=== PATIENT | female | born 1965 | race Caucasian/White ===

== ENCOUNTER 2020-01-01 10:49 | Emergency (ER) | payer BC, SELFPAY ==
[2020-01-01 10:56] VITALS: BP 119/66; PULSE 84; RESP 14; TEMP 36.6; O2SAT 99
--- NOTE | 2020-01-01 11:04 | ED.EAR ---
HPI - Ear Problem General Chief complaint: Ear Stated complaint: right ear pressure/shoulder pain Time Seen by Provider: 01/01/20 11:04 Source: patient Mode of arrival: ambulatory Limitations: no limitations History of Present Illness HPI Narrative: Nicole Harvey is a 54-year-old woman with a PMH of seizure disorder, high cholesterol, anxiety, GERD, who comes to the [facility] with tinnitus and discomfort in her right ear started yesterday Related Data Home Medications Medication Instructions Recorded Confirmed ascorbic acid (vitamin C) [Vitamin 500 mg PO DAILY 01/01/20 01/01/20 C] aspirin 81 mg PO DAILY 01/01/20 01/01/20 cetirizine [Zyrtec] 10 mg PO DAILY 01/01/20 01/01/20 diazepam 2 mg PO DIRECTED 01/01/20 01/01/20 lamotrigine 200 mg PO DAILY 01/01/20 01/01/20 omega 7-yit-poo-fish oil [Fish Oil] 1 cap PO DAILY 01/01/20 01/01/20 omeprazole 40 mg PO DAILY 01/01/20 01/01/20 rosuvastatin 10 mg PO DAILY 01/01/20 01/01/20 zinc 50 mg PO DAILY 01/01/20 01/01/20 Allergies Allergy/AdvReac Type Severity Reaction Status Date / Time ciprofloxacin Allergy Mild Verified 03/08/10 10:02 sulfamethoxazole Allergy Mild Verified 03/08/10 10:02 trimethoprim Allergy Mild Verified 03/08/10 10:02 CIPROFLOXACIN HCL Allergy Mild Uncoded 03/08/10 10:02 MIDAZOLAM HCL Allergy Mild Uncoded 03/08/10 10:02 Review of Systems Review of Systems: Narrative: CONSTITUTIONAL: Denies fever, chills, sweats. EYES: Denies visual changes, redness, discharge. ENT: Denies rhinorrhea, congestion, sore throat, right otalgia. And tinnitus CARDIOVASCULAR: Denies chest pain, palpitations, edema. RESPIRATORY: Denies dyspnea, wheezing, cough GASTROINTESTINAL: Denies abdominal pain, nausea, vomiting, diarrhea. GENITOURINARY: Denies dysuria, hematuria, abnormal discharge SKIN: Denies rash or itching. NEUROLOGIC: Denies numbness, or focal weakness. PSYCHIATRIC: Denies anxiety or depression. [facility] Family History Family History Other Diabetes mellitus Heart disease Hypertension Social History Social History (Updated 01/01/20 @ 11:12 by Natacha Powers CNP) Smoking status: Never smoker Alcohol intake: never Comments At time of signature, I agree with nursing past medical, surgical, social and family history. There is no relevant family history pertinent to the presenting complaint. Exam Narrative: Exam Narrative: GENERAL: This is a well-nourished, well-developed patient, in mild distress. HEAD: normocephalic, atraumatic. EYES:Sclera clear/white. Vision is grossly intact. EARS: External ears normal, auditory canals clear and without drainage, L TM normal without perforation. Fluid behind R TM Hearing grossly intact. NOSE: External nose normal without nasal discharge, nares without redness, no rhinorrhea. THROAT: Mucous membranes moist, NECK: Neck supple, CARDIOVASCULAR: Regular rate and rhythm without murmurs, gallops, or rubs. RESPIRATORY: Clear to auscultation. Breath sounds equal bilaterally. No wheezes, rales, or rhonchi. GASTROINTESTINAL: Abdomen soft, SKIN: warm, intact with no suspicious lesions or rash, good texture and turgor. NEURO: awake, alert, and oriented to person, place and time. There were no obvious focal neurologic abnormalities. Steady gait EXTREMITIES: Normal range of motion. BACK: Nontender without deformity Course Course Emergency Course: started on eardrops -discussed application of eardrops and patient should call PCP on Friday if not improved Vital Signs Vital signs: Vital Signs Temperature 98 F 01/01/20 10:56 Pulse Rate 84 01/01/20 10:56 Respiratory Rate 14 01/01/20 10:56 Blood Pressure 119/66 01/01/20 10:56 Pulse Oximetry 99 01/01/20 10:56 Temperature 98 F 01/01/20 10:56 Pulse Rate 84 01/01/20 10:56 Respiratory Rate 14 01/01/20 10:56 Blood Pressure 119/66 01/01/20 10:56 Pulse Oximetry 99 01/01/20
== END 2020-01-01 11:19 | disposition home or self-care (01) ==
PROVIDERS: Emergency Provider Nurse Practitioner; PCP Emergency Medicine
DX: H92.01 Otalgia, right ear (principal); G40.909 Epilepsy, unspecified, not intractable, without status epilepticus; K21.9 Gastro-esophageal reflux disease without esophagitis; E78.00 Pure hypercholesterolemia, unspecified
CPT/HCPCS: 99203; G0463

== ENCOUNTER 2020-02-01 15:23 | Outpatient (CLI) | payer BC, SELFPAY ==
--- NOTE | ~2020-02-01 | MM_ITS ---
EXAMINATION: MM screening mitchell BI w shiv HISTORY: Screening mammogram TECHNIQUE: Craniocaudal and mediolateral oblique 3-D tomosynthesis images were obtained and synthetic 2-D images were generated. Rotated lateral CC views. CAD analysis was submitted and interpreted. COMPARISON: No prior mammogram is available for comparison at this institution. BREAST PARENCHYMAL COMPOSITION: The breasts are heterogeneously dense, which may obscure small masses . FINDINGS: Left breast masses are noted. Probable calcified fibroadenoma in the posterior aspect of th e lower outer quadrant of left breast. Approximately 9 mm mass is noted posteriorly in the inner left breast. Additional smaller left breast masses are suggested. Otherwise no suspicious mass or architectural distortion, malignant calcification, skin thickening or retraction of either breast is noted. IMPRESSION: 1. Left breast masses 2. Diagnostic left mammogram and left breast ultrasound examination are recommended. BI-RADS Category 0: Incomplete: Needs additional imaging evaluation. Reviewed, dictated and finalized at location A. IMPRESSION: 1. Left breast masses 2. Diagnostic left mammogram and left breast ultrasound examination are recomme nded. BI-RADS Category 0: Incomplete: Needs additional imaging evaluation.
--- NOTE | ~2020-02-01 | US_ITS ---
US thyroid INDICATION: Thyroid nodule TECHNIQUE: Real-time sonographic images of the thyroid gland were obtained. COMPARISON: No prior studies for comparison. FINDINGS: The right thyroid lobe measures 4.1 x 1.3 x 1.3 cm. The left thyroid lobe measures 5.7 x 1 .4 x 1.3 cm. There is a 5 mm hypoechoic mixed solid and cystic, wider than tall, ill-defined margins with no calcifications, TR 3. No follow-up required. In the left lobe there is a heterogeneous mass w hich is mixed cystic and solid, relatively isoechoic, wider than tall, ill-defined margins and a sing le calcification, TR 3. This mass measures 2.2 x 1.2 x 1.5 cm. IMPRESSION: 1. 2.2 cm left thyroid mass, TR 3. Ultrasound-guided fine-needle aspiration biopsy recommended. Reviewed, dictated and finalized at location A. IMPRESSION: 1. 2.2 cm left thyroid mass, TR 3. Ultrasound-guided fine-needle aspiration bi opsy recommended.
== END 2020-02-01 15:24 | disposition home or self-care (01) ==
PROVIDERS: PCP Emergency Medicine; Visit Provider Emergency Medicine
DX: Z12.31 Encounter for screening mammogram for malignant neoplasm of breast (principal); E04.1 Nontoxic single thyroid nodule; R91.8 Other nonspecific abnormal finding of lung field
CPT/HCPCS: 76536; 77063; 77067

== ENCOUNTER 2020-02-03 15:24 | Emergency (ER) | payer BC, SELFPAY ==
[2020-02-03 15:30] VITALS: BP 104/68; PULSE 89; RESP 18; TEMP 37.1; O2SAT 100
--- NOTE | 2020-02-03 15:38 | ED.GENADULT ---
HPI - General Adult General Chief complaint: Upper Respiratory Infection Stated complaint: right ear pain/pressure/face numb Time Seen by Provider: 02/03/20 15:41 Source: patient and RN notes reviewed Mode of arrival: ambulatory Limitations: no limitations History of Present Illness HPI narrative: This is a 54 years old female presents to the office for an evaluation of right ear pain for one month. Symptoms include pressure and ringing. She was treated for ear infection with no relief. She said that she heard heart beats in her ear and woke up this morning with numbness on her face. She describes her symptoms as Novocain wears off type sensation. Denies slur speech, difficulty speaking, confusion or focal weakness. [facility] who prompt her to seek Urgentcare visit. Denies previous history of hearing problem/injury/trauma. Related Data Home Medications Medication Instructions Recorded Confirmed ascorbic acid (vitamin C) [Vitamin 500 mg PO DAILY 01/01/20 01/01/20 C] aspirin 81 mg PO DAILY 01/01/20 01/01/20 cetirizine [Zyrtec] 10 mg PO DAILY 01/01/20 01/01/20 diazepam 2 mg PO DIRECTED 01/01/20 01/01/20 lamotrigine 200 mg PO DAILY 01/01/20 01/01/20 omega 9-uif-srq-fish oil [Fish Oil] 1 cap PO DAILY 01/01/20 01/01/20 omeprazole 40 mg PO DAILY 01/01/20 01/01/20 rosuvastatin 10 mg PO DAILY 01/01/20 01/01/20 zinc 50 mg PO DAILY 01/01/20 01/01/20 rtqbowzwfgmo-ige-lhit-FA-vit K tablet PO 02/03/20 [Adults Multivitamin] rosuvastatin [Crestor] 20 mg PO DAILY 02/03/20 02/03/20 Allergies Allergy/AdvReac Type Severity Reaction Status Date / Time midazolam Allergy Unknown Verified 02/03/20 15:48 sulfamethoxazole Allergy Unknown Verified 02/03/20 15:49 [From Bactrim] trimethoprim [From Bactrim] Allergy Unknown Verified 02/03/20 15:49 ciprofloxacin AdvReac Unknown Verified 02/03/20 15:46 Review of Systems Review of Systems: Narrative: CONSTITUTIONAL: Denies fever, chills EYES: Denies visual changes, redness ENT: Denies rhinorrhea, congestion, sore throat. Reports right ear pressure, ringing and heart beat type noise. CARDIOVASCULAR: Denies chest pain, palpitation RESPIRATORY: Denies dyspnea, wheezing, cough GASTROINTESTINAL: Denies abdominal pain, nausea, vomiting SKIN: Denies rash/insect bites MUSCULOSKELETAL: Denies acute joints pain NEUROLOGIC: Denies lightheaded/weakness. All other systems reviewed are negative, except as documented in HPI. [facility] Past Medical History Medical History (Updated 02/03/20 @ 16:00 by DASIA Alvarenga) Anxiety GERD (gastroesophageal reflux disease) High cholesterol Seizure disorder Family History Family History Other Diabetes mellitus Heart disease Hypertension Social History Social History Smoking status: Never smoker Alcohol intake: never Comments At time of signature, I agree with nursing past medical, surgical, social and family history. There is no relevant family history pertinent to the presenting complaint. Exam Narrative: Exam Narrative: GENERAL: This is a well-nourished, well-developed patient, in no apparent distress. EYES: PERRL. EMOI. Sclera clear/white. Vision is grossly intact. EARS: External ears normal, auditory canals clear and without drainage, TMs normal without perforation. Hearing grossly intact.NO TMJ tenderness. NOSE: External nose normal with no obvious nasal discharge, nares without redness, no rhinorrhea. THROAT: Mucous membranes moist, posterior pharynx clear. NECK: Neck supple, non-tender without lymphadenopathy, masses or thyromegaly. CARDIOVASCULAR: Regular rate and rhythm without murmurs, gallops, or rubs. RESPIRATORY: Clear to auscultation. Breath sounds equal bilaterally. No wheezes, rales, or rhonchi. GASTROINTESTINAL: Abdomen soft, non-tender, nondistended. [place]
== END 2020-02-03 16:00 | disposition home or self-care (01) ==
PROVIDERS: Emergency Provider Nurse Practitioner; PCP Emergency Medicine
DX: H93.8X1 Other specified disorders of right ear (principal); F41.9 Anxiety disorder, unspecified; K21.9 Gastro-esophageal reflux disease without esophagitis; E78.00 Pure hypercholesterolemia, unspecified; G40.909 Epilepsy, unspecified, not intractable, without status epilepticus
CPT/HCPCS: 99211; G0463

== ENCOUNTER 2021-01-01 01:18 | Day surgery (SDC) | payer OTHER, SELFPAY ==
[2020-12-13 09:51] VITALS: BMI 27.5
[2021-01-01 08:25] VITALS: BP 128/89; PULSE 97; RESP 18; TEMP 36.2; O2SAT 100; BMI 26.6
--- NOTE | 2021-01-01 08:29 | P.PNAN_ITS ---
Anes - Initial Pre Proc Eval Procedure: Operation Date: 01/01/21 09:00 Proposed Procedures p Esophagogastroduodenoscopy & Screening Colonoscopy - Festus Simmons MD Date/Time: 01/01/21 08:29 Surgeon: Festus Melton MD Pre Op Diagnosis: neoplasm, GERD Patient Data Age: 55 Gender: F Height: 1.6 m Weight: 68.3 kg Last Vital Signs Temp 97.1 F L 01/01/21 08:25 Pulse 97 01/01/21 08:25 Resp 18 01/01/21 08:25 BP 128/89 01/01/21 08:25 Pulse Ox 100 01/01/21 08:25 Allergies Allergy/AdvReac Type Severity Reaction Status Date / Time sulfamethoxazole Allergy Unknown Verified 01/01/21 08:24 [From Bactrim] trimethoprim [From Bactrim] Allergy Unknown Verified 01/01/21 08:24 ciprofloxacin AdvReac Unknown Verified 01/01/21 08:24 midazolam AdvReac Unknown Verified 01/01/21 08:24 topiramate [From Topamax] AdvReac Hallucinati Verified 01/01/21 08:24 ng Home Medications Medication Instructions Recorded Confirmed Type ascorbic acid (vitamin C) [Vitamin 500 mg PO DAILY 01/01/20 12/13/20 History C] aspirin 81 mg PO DAILY 01/01/20 12/13/20 History cetirizine [Zyrtec] 10 mg PO DAILY 01/01/20 12/13/20 History lamotrigine 200 mg PO BID 01/01/20 12/13/20 History omega 6-pwd-pjc-fish oil [Fish Oil] 1 cap PO DAILY 01/01/20 12/13/20 History rosuvastatin 10 mg PO DAILY 01/01/20 12/13/20 History kdgqucupamzt-flt-xrov-FA-vit K 2 tablet PO DAILY 02/03/20 12/13/20 History [Adults Multivitamin] Turmeric/Curcumin 1 cap PO DAILY 12/13/20 12/13/20 History famotidine 40 mg PO DAILY 12/13/20 12/13/20 History Patient hx anesthesia problems: none Family hx anesthesia problems: none PMFSH Past Medical History Medical History (Updated 02/04/20 @ 00:00 by Background Daemon) Anxiety GERD (gastroesophageal reflux disease) High cholesterol Seizure disorder Family History Family History Other Diabetes mellitus Heart disease Hypertension Social History Social History Smoking status: Never smoker Alcohol intake: never Living arrangements: with family Spiritual care concerns: No Anes - Eval Final PreProcedure Day of Procedure 01/01/21 08:29 Patient weight: overweight Heart: regular rate and rhythm Lungs: clear to auscultation Airway: Mallampati scale class II Neurological: alert and oriented Last oral intake: >/= 8 hours ASA classification: III Emergent: no Anesthetic plan: proceed Anesthesia type and monitoring: general GIVS and standard monitoring Informed Consent: The patient's anesthetic plan and its attendant risks and benefits were discussed with the patient/family/POA. Questions were solicited and answers provided to the satisfaction of the patient/family/POA.
[2021-01-01] MEDS: LACTATED RINGERS 1,000 ML 150 ML IV CONT (08:42)
--- NOTE | 2021-01-01 08:56 | PM.HPGS ---
History of Present Illness History of Present Illness Consent: Risks, benefits, and alternatives have been discussed and questions answered. Patient agrees to proceed with procedure. Chief complaint: neoplasm, GERD Narrative: Felisha Harvey is a 55 year old female with gerd on famotidine, also had colonoscopy over 10 years ago. Review of Systems Constitutional: Constitutional: Denies headache(s) and Denies weakness Eyes: Eyes: Denies blurry vision ENT: Reports Normal hearing present, Denies headache(s) and Denies neck pain Cardiovascular: Cardiovascular: Denies chest pain and Denies dyspnea Respiratory: Respiratory: Denies dyspnea Gastrointestinal: Gastrointestinal: Reports no additional gastrointestinal complaints Genitourinary: Genitourinary: Denies dysuria Musculoskeletal: Musculoskeletal: Denies neck pain Integumentary/Breasts: Skin/Breast: Denies dry skin Neurologic: Reports Normal hearing present, Denies headache(s) and Denies weakness Psychiatric: Psychiatric: Denies anxiety Endocrine: Endocrine: Denies change in body appearance Hematologic/Lymphatic: Hematologic/Lymphatic: Denies easy bleeding Allergic/Immunologic: Allergic/Immunologic: Denies urticaria PMFSH Past Medical History Medical History (Updated 01/01/21 @ 08:57 by Festus Melton MD) Anxiety Colon cancer screening GERD (gastroesophageal reflux disease) High cholesterol Seizure disorder Family History Family History Other Diabetes mellitus Heart disease Hypertension Social History Social History Smoking status: Never smoker Alcohol intake: never Living arrangements: with family Spiritual care concerns: No Meds Home Medications and Allergies Home Medications Medication Instructions Recorded Confirmed Type ascorbic acid (vitamin C) [Vitamin 500 mg PO DAILY 01/01/20 12/13/20 History C] aspirin 81 mg PO DAILY 01/01/20 12/13/20 History cetirizine [Zyrtec] 10 mg PO DAILY 01/01/20 12/13/20 History lamotrigine 200 mg PO BID 01/01/20 01/01/21 History omega 1-bns-qmi-fish oil [Fish Oil] 1 cap PO DAILY 01/01/20 01/01/21 History rosuvastatin 10 mg PO DAILY 01/01/20 12/13/20 History tcjiahzoyivh-rbl-lusr-FA-vit K 2 tablet PO DAILY 02/03/20 12/13/20 History [Adults Multivitamin] Turmeric/Curcumin 1 cap PO DAILY 12/13/20 12/13/20 History famotidine 40 mg PO DAILY 12/13/20 12/13/20 History Allergies Allergy/AdvReac Type Severity Reaction Status Date / Time sulfamethoxazole Allergy Unknown Verified 01/01/21 08:24 [From Bactrim] trimethoprim [From Bactrim] Allergy Unknown Verified 01/01/21 08:24 ciprofloxacin AdvReac Unknown Verified 01/01/21 08:24 midazolam AdvReac Unknown Verified 01/01/21 08:24 topiramate [From Topamax] AdvReac Hallucinati Verified 01/01/21 08:24 ng Vital Signs Vital Signs - 24 hr 01/01/21 08:25 Temperature 97.1 F L Pulse Rate 97 Respiratory Rate 18 Blood Pressure 128/89 Pulse Oximetry 100 Exam Const: General: comfortable and no acute distress HENMT: General nose exam: Normal nares present Eyes: General: appearance normal, both eyes and all related structures Neck: Neck: no JVD Resp: Auscultation: clear to auscultation bilaterally Cardio: Rate: regular rate Rhythm: regular rhythm GI: Inspection: non-distended GI Palp: Yes Soft to palpation Skin: General skin exam: normal color Neuro: General: gait normal Speech: normal speech Extrem: General: normal to inspection Psych: Mental Status: mental status grossly normal Assessment and Plan Assessment and plan (1) GERD (gastroesophageal reflux disease): Code(s): K21.9 - Gastro-esophageal reflux disease without esophagitis Status: Acute Assessment and Plan: egd with bx (2) Colon cancer screening: Code(s): Z12.11 - Encounter for screening f
[2021-01-01] MEDS: BENZOCAINE (*SP) 60 ML SPRAY CAN (HURRICAINE) 1 SPRAY MUCOUS MEM (08:57)
[2021-01-01 09:27] VITALS: BP 112/46; PULSE 83; RESP 18; O2SAT 100
[2021-01-01 09:37] VITALS: BP 112/60; PULSE 80; RESP 18; O2SAT 100
[2021-01-01 09:47] VITALS: BP 110/67; PULSE 75; RESP 18; O2SAT 100
== END 2021-01-01 09:58 | disposition home or self-care (01) ==
PROVIDERS: PCP Emergency Medicine; Visit Provider Internal Medicine Gastroenterology
PROC: 0DJ08ZZ Inspection of Upper Intestinal Tract, Via Natural or Artificial Opening Endoscopic (ICD-10-PCS; CPT 43235; principal; 2021-01-01 09:00)
DX: Z12.11 Encounter for screening for malignant neoplasm of colon (principal); K29.50 Unspecified chronic gastritis without bleeding; K21.00 Gastro-esophageal reflux disease with esophagitis, without bleeding; G40.909 Epilepsy, unspecified, not intractable, without status epilepticus; E78.00 Pure hypercholesterolemia, unspecified; F41.9 Anxiety disorder, unspecified; Z79.82 Long term (current) use of aspirin
CPT/HCPCS: 45378; 43239; 88305; J2704; J7120

== ENCOUNTER 2021-01-03 13:06 | Outpatient (CLI) | payer OTHER, SELFPAY ==
--- NOTE | ~2021-01-03 | DEXA_ITS ---
Bone Density Report Name: Felisha Harvey Age: 55 Sex: Female Ethnicity: White Date of : 1965 Indication: postmenopausal; prior fracture; Referring Provider: KATERINA LAKE Study: Bone densitometry was performed. Exam Date: January 03, 2021 Accession number: [id number] Bone Density: Region BMD T-score Z-score Classification AP Spine (L1-L4) 1.004 -0.4 0.7 Normal Femoral Neck (Left) 0.612 -2.1 -1.1 Osteopenia Total Hip (Left) 0.778 -1.3 -0.7 Osteopenia Total Hip Bilateral Avg 0.755 -1.5 -0.9 Osteopenia Femoral Neck (Right) 0.593 -2.3 -1.2 Osteopenia Total Hip (Right) 0.730 -1.7 -1.1 Osteopenia World Health Organization criteria for BMD impression classify patients as: Normal (T-score at or above -1.0), Osteopenia (T-score between -1.0 and -2.5), or Osteoporosis (T-score at or below -2.5). Clinical Information Provided by Patient: Has had a low trauma fracture Has used the following medications: Vitamin D Patient maximum height was 63 Menopause Age: 53 No regular weight bearing exercise Onset of menses at age 13 Number of children 0 Impression: The patient has low bone mass, based on the Right Femoral Neck T-score. The patient has risk factors, including: previous fracture. Discussion: BONE DENSITY IS LOW AT ONE OR MORE SKELETAL SITES. This patient's lowest T-score is low at one or more skeletal sites. It meets the World Health Organization's (WHO) criteria for ?low bone mass? (T-score between -1.0 and -2.5). The patient's 10-year risk of fracture as calculated by FRAX is less than the threshold where pharmacological therapy is recommended by the National Osteoporosis Foundation (NOF). However, all treatment decisions require clinical judgment and consideration of individual patient factors, including patient preferences, comorbidities, previous drug use, risk factors not captured in the FRAX model (e.g., frailty, falls, vitamin D deficiency, increased bone turnover, interval significant decline in bone density) and possible under or overestimation of fracture risk by FRAX. The patient should follow a healthful lifestyle (good nutrition with adequate calcium and vitamin D, and appropriate weight-bearing exercise). Follow-Up: Consider repeating this study in 2 to 3 years to reassess this patient's status, or sooner if there is some new clinical indication. Reported by: ANGELY on 01/03/2021 1:21:00 PM. Reviewed, dictated and finalized at location ADaniel KO
== END 2021-01-03 13:07 | disposition home or self-care (01) ==
LOC: ANHIMG 13:07
PROVIDERS: PCP Emergency Medicine; Visit Provider Emergency Medicine
DX: Z78.0 Asymptomatic menopausal state (principal); M85.89 Other specified disorders of bone density and structure, multiple sites
CPT/HCPCS: 77080

== ENCOUNTER 2021-06-21 11:09 | Outpatient (CLI) | payer OTHER, SELFPAY ==
--- NOTE | ~2021-06-21 | US_ITS ---
EXAMINATION: US thyroid EXAM DATE: 06/21/2021 11:38 INDICATION: Thyroid nodules. TECHNIQUE: Multiple grayscale and Doppler images of the thyroid were obtained (by a technologist who performed the scan) and subsequently reviewed. Individual nodules and recommendations may be reporte d in accordance with TI-RADS system as designated by the 2017 ACR White Paper TI-RADS committee. Comp blueson is made to prior examination from 02/01/2020. FINDINGS: The right thyroid lobe measures 3.9 x 1.8 x 1.3 cm, the left measuring 5.3 x 2.2 x 1.5 cm. There is h omogeneous thyroid echogenicity. In the lower pole of the left thyroid lobe there is a nodule measuring 2.7 x 1.5 x 2.0 cm, solid (2 p oints), isoechoic (1 point), wider than tall, smooth well defined margin, without echogenic foci, cat egory TR3 for this nodule. Dimension on previous exam provided at 2.2 x 1.2 x 1.5 cm, has demonstrat ed interval increase in size. IMPRESSION: Left thyroid lobe nodule with increase in size; recommend ultrasound-guided FNA. Reviewed, dictated and finalized at location B. 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
== END 2021-06-21 11:10 | disposition home or self-care (01) ==
LOC: ANHIMG 11:13
PROVIDERS: PCP Emergency Medicine; Visit Provider Emergency Medicine
DX: E04.1 Nontoxic single thyroid nodule (principal)
CPT/HCPCS: 76536

== ENCOUNTER 2021-07-17 14:32 | Outpatient (CLI) | payer OTHER, SELFPAY ==
--- NOTE | ~2021-07-17 | MM_ITS ---
EXAMINATION: MM screening mitchell BI w shiv HISTORY: Screening TECHNIQUE: Craniocaudal and mediolateral oblique 3-D tomosynthesis images were obtained and synthetic 2-D images were generated. CAD analysis was submitted and interpreted. COMPARISON: Comparison to multiple prior studies sequentially, with oldest reviewed study dated 08/29. BREAST PARENCHYMAL COMPOSITION: The breasts are extremely dense, which lowers the sensitivity of mamm ography FINDINGS: There is no evidence of suspicious mass, calcification, or architectural distortion to sugg est malignancy in either breast. There has been no suspicious interval change. IMPRESSION: 1. No mammographic evidence of malignancy. 2. Recommend routine screening mammography in one year. BI-RADS Category 1: Negative Reviewed, dictated and finalized at location A. [employer]
== END 2021-07-17 14:33 | disposition home or self-care (01) ==
PROVIDERS: PCP Emergency Medicine; Visit Provider Emergency Medicine
DX: Z12.31 Encounter for screening mammogram for malignant neoplasm of breast (principal)
CPT/HCPCS: 77063; 77067

== ENCOUNTER 2021-08-01 12:57 | Outpatient (CLI) | payer OTHER, SELFPAY ==
--- NOTE | ~2021-08-01 | US_ITS ---
EXAMINATION: US FNA w image guidance DATE: 08/01/2021 14:02 INDICATION: Left thyroid nodule. TECHNIQUE: The procedure and its benefits and risks were discussed with the patient. Risks specifically discusse d included bleeding. The patient verbalized understanding of the risks and agreed to proceed. The nec k was prepped and draped in the usual sterile manner. 1% lidocaine was used for local anesthesia. 5 passes were made with a 25G needle into the lesion under ultrasound guidance. There were no immedia te complications. The patient understood to call the ordering physician for results after a week and a half and verbalized that understanding. FINDINGS: Grayscale ultrasound images demonstrate needles advanced into a 2.7 cm nodule in inferior left thyroi d lobe for biopsy. IMPRESSION: 1. Ultrasound-guided fine needle aspiration of a left thyroid nodule. Reviewed, dictated and finalized at location A. 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
== END 2021-08-01 12:58 | disposition home or self-care (01) ==
LOC: ANHIMG 12:58
PROVIDERS: PCP Emergency Medicine; Visit Provider Emergency Medicine
DX: E04.1 Nontoxic single thyroid nodule (principal)
CPT/HCPCS: 10005; 88173; 88305

== ENCOUNTER → 2022-12-17 13:44 | Outpatient (CLI) | payer OTHER, SELFPAY ==
--- NOTE | ~2022-12-17 | XR_ITS ---
EXAM: XR knee LT 3V DATE: 12/17/2022 14:10 HISTORY: PAIN IN LEFT KNEE. . COMPARISON: None available. FINDINGS: Normal mineralization. No fracture or dislocation. Question of a deep lateral femoral notc h sign. No lytic or blastic lesion. Joint spaces are maintained. No erosion or periosteal change. Sof t tissues within normal limits. IMPRESSION: Possible deep lateral femoral notch sign, which can accompany ACL tears. Consider MR of t he knee for further evaluation, particularly if there has been recent trauma. . Reviewed, dictated and finalized at location K. IMPRESSION: Possible deep lateral femoral notch sign, which can accompany ACL t ears. Consider MR of the knee for further evaluation, particularly if there has been recent trauma. .
== END ==
PROVIDERS: PCP Emergency Medicine; Visit Provider Emergency Medicine
DX: M25.562 Pain in left knee (principal)
CPT/HCPCS: 73562

== ENCOUNTER 2022-12-30 15:19 | Observation (INO) | payer OTHER, SELFPAY ==
[2022-12-30] VITALS (7 sets, daily range): BP systolic 126–151; BP diastolic 60–76; PULSE 87–99; RESP 11–20; TEMP 36.4–36.8; O2SAT 94–100; BMI 27.4
--- NOTE | ~2022-12-30 | MR_ITS ---
MRI of the brain Clinical History: Left facial numbness Technique: Axial and sagittal T1-weighted images were acquired. These were followed by axial T2-weigh chico, diffusion weighted, gradient, and FLAIR images. Following intravenous administration of 14 cc Mu ltiHance gadolinium, T1-weighted fat-sat imaging was performed in the axial and coronal planes. Findings: No abnormal signal seen in the brain parenchyma. No acute infarct, intracranial hemorrhage, or mass lesion. Ventricles and subarachnoid spaces are unremarkable. Orbits are unremarkable. There is mild right max illary sinus disease. Remaining paranasal sinuses and mastoid are clear. Major intracranial flow void s appear intact. Sagittal midline structures are intact. No abnormal postcontrast enhancement identified. IMPRESSION: No intracranial abnormality. Mild right maxillary sinus disease. Reviewed, dictated and finalized at [facility].
--- NOTE | ~2022-12-30 | CT_ITS ---
EXAMINATION: CTA BRAIN/CAROTID DATE: 12/30/2022 16:31 INDICATION: Left arm and facial numbness TECHNIQUE: Computed tomographic angiography (CTA) of the head and neck was performed with 100 mL Omni paque-350 intravenous contrast. Multiplanar reconstructions and maximum intensity projection 3D-recon structions of the carotid arteries and of the intracranial arteries were created by the technologist on a separate workstation. Precontrast CT of the head was also obtained. Automated exposure control and iterative reconstruction technique were employed.The dose-length product was 1581.38 mGy-cm. COMPARISON: None. FINDINGS: Carotid arteries: Normal caliber thoracic arch with atherosclerotic plaque. There is 0% stenosis of the right carotid b ulb relative to normal distal artery lumen diameter (NASCET criteria). There is 0% stenosis of the le ft carotid bulb relative to normal distal artery lumen diameter. Mild dependent atelectasis in the vi sualized lungs. Multinodular goiter. Cervical soft tissues and superior mediastinum are otherwise unr emarkable. Head: No acute intracranial hemorrhage, acute infarction or abnormal extra axial fluid collection. Ventricl es are normal and symmetric. No mass/mass effect. No abnormally enhancing brain lesions on the postco ntrast imaging. Moderate mucosal thickening in the right maxillary sinus. The orbits and mastoid air cells are normal. Intracranial arteries Small amount of nonhemodynamically significant plaque at the bilateral carotid siphons. Left vertebra l artery is dominant. There is no hemodynamically significant stenosis in the vertebral, basilar and internal carotid arteries. There are no aneurysms identified. Both A1 and P1 segments are patent. C erebral arterial arborization appears symmetric. IMPRESSION: 1. 0% stenosis of the right and left carotid bulbs relative to normal distal artery lumen diameter (N ASCET criteria). 2. No acute intracranial process. 3. No hemodynamic significant plaque, aneurysm or thrombosis in the cerebral arteries. 4. Multinodular goiter. Reviewed, dictated and finalized at location A. IMPRESSION: 1. 0% stenosis of the right and left carotid bulbs relative to normal distal ar nia lumen diameter (NASCET criteria). 2. No acute intracranial process. 3. No hemodynamic significant plaque, aneurysm or thrombosis in the cerebral ar teries. 4. Multinodular goiter.
[2022-12-30 15:58] LABS: Basophils Percent Auto 0.4 % (0.2-1.2); Eosinophils Absolute Auto 0.2 K/mm3 (0-0.3); Eosinophils Percent Auto 2.8 % (0-4.4); Hematocrit 37.1 % (37.0-47.0); Hemoglobin 11.9 g/dL (12.0-15.0); Immature Granulocyte Absolute 0.02 K/mm3 (0.00-0.031); Immature Granulocyte Percent A 0.3 % (0-0.5); Lymphocytes Absolute Auto 1.89 K/mm3 (0.9-3.2); Lymphocytes Percent Auto 27.9 % (18.3-44.2); Mean Corpuscular HGB Conc 32.1 g/dl (32-36); Mean Corpuscular Hemoglobin 27.7 pg (26-34); Mean Corpuscular Volume 86.5 fl (80-100); Mean Platelet Volume 9.3 fl (7.4-10.4); Monocytes Absolute Auto 0.5 K/mm3 (0.1-0.6); Monocytes Percent Auto 7.2 % (2.6-8.5); Neutrophils Absolute Auto 4.2 K/mm3 (1.3-6.7); Neutrophils Percent Auto 61.4 % (45.5-73.1); Platelet Count Result 264 k/mm3 (150-375); Red Blood Count 4.29 M/mm3 (4.2-5.4); Red Cell Distribution Width 13.4 % (11.5-14.5); White Blood Count 6.8 K/mm3 (4.5-10.0)
[2022-12-30 16:09] LABS: Alanine Aminotransferase 27 U/L (6-35); Albumin Level 4.4 g/dL (3.5-5.1); Alkaline Phosphatase 102 U/L (38-126); Anion Gap 5 mmol/L (8-16); Aspartate Amino Transferase 32 U/L (14-36); Bilirubin,Total 0.3 mg/dL (0.2-1.3); Blood Urea Nitrogen 22 mg/dL (7-17); Calcium 9.3 mg/dL (8.4-10.2); Carbon Dioxide 30 mmol/L (22-30); Chloride 102 mmol/L (98-107); Estimated CRCL calculation 50 ml/min; Estimated Glomerular Filt Rate > 60; Glucose 99 mg/dL (65-110); Potassium 3.8 mmol/L (3.4-5.0); Sodium 137 mmol/L (137-145)
[2022-12-30 16:12] LABS: INR 0.9; Prothrombin Time 12.6 Seconds (11.1-14.7)
[2022-12-30 16:13] LABS: Partial Thromboplastin Time 28.1 SECONDS (22.3-36.8)
--- NOTE | 2022-12-30 17:16 | ED.GENADULT ---
HPI - General Adult General Chief complaint: Unspecified Stated complaint: ?sent by PCP for mini strokes Time Seen by Provider: 12/30/22 15:37 History of Present Illness HPI narrative: 57-year-old female presented the emergency department for evaluation of some left facial and left arm tightness and paresthesia. Patient states that she was at rest when she had onset of a tightness in her mouth tightness of the left face and into the left arm. Patient states that she had some decrease sensation but had no associated weakness. Patient does have a history of generalized seizures but states she had no seizure-like activity with this. Patient has not had a seizure in approximately 5 years. Related Data Home Medications Medication Instructions Recorded Confirmed ascorbic acid (vitamin C) 500 mg 500 mg PO DAILY 01/01/20 12/30/22 tablet (Vitamin C) aspirin 81 mg chewable tablet 81 mg PO DAILY 01/01/20 12/30/22 cetirizine 10 mg tablet (Zyrtec) 10 mg PO DAILY 01/01/20 12/30/22 lamotrigine 200 mg tablet 200 mg PO BID 01/01/20 12/30/22 omega 1-xmr-ldl-fish oil 1,000 mg 1 cap PO DAILY 01/01/20 12/30/22 (120 mg-180 mg) capsule (Fish Oil) rosuvastatin 10 mg tablet 10 mg PO DAILY 01/01/20 12/30/22 multivit with minerals-iron 18 2 tablet PO DAILY 02/03/20 12/30/22 mg-folic ac 400 mcg-vit K 25 mcg tablet (Adults Multivitamin) famotidine 40 mg tablet 40 mg PO HS 12/13/20 12/30/22 Allergies Allergy/AdvReac Type Severity Reaction Status Date / Time sulfamethoxazole Allergy Unknown Verified 12/30/22 15:59 [From Bactrim] trimethoprim [From Bactrim] Allergy Unknown Verified 12/30/22 15:59 ciprofloxacin AdvReac Unknown Verified 12/30/22 15:59 midazolam AdvReac Unknown Verified 12/30/22 15:59 topiramate [From Topamax] AdvReac Hallucinati Verified 12/30/22 15:59 ng Review of Systems Review of Systems: All systems reviewed & are unremarkable except as noted in HPI and below PMFSH Past Medical History Medical History (Updated 12/30/22 @ 21:57 by Latrell Villa MD) Anxiety Colon cancer screening GERD (gastroesophageal reflux disease) High cholesterol Seizure disorder Family History Family History (System 09/12/21 @ 15:15 by Dena Bray) Other Diabetes mellitus Heart disease Hypertension Social History Social History (System 09/12/21 @ 15:15 by Dena Bray) Smoking status: Never smoker Alcohol intake: never Lack of Transportation: No Lack of Food: Never True Current Housing: I Have Housing Concerned About Future Housing: No Difficulty Paying Gas/Electric Bills: No Difficulty Paying for Meds: No Currently Unemployed: No Education: Bachelor's Degree Difficulty w/ Childcare or Family Care: No Living arrangements: with family Spiritual care concerns: No Exam Narrative: APPEARANCE: Well appearing, no pain, no distress, well-nourished. HEAD: normocephalic, atraumatic. EYES: PERRLA/EOMI, conjunctivae clear. NOSE: Normal no drainage EARS:TMS clear with good light reflex. THROAT: Pharynx clear, no exudate. NECK: Supple. No adenopathy, no masses. RESPIRATORY: Airway patent, respirations nonlabored. Clear to auscultation bilaterally, no rales, rhonchi, wheezing. CARDIOVASCULAR: Regular rate and rhythm without murmurs rubs or gallops. ABDOMINAL: Soft, nontender, nondistended, normal bowel sounds MUSCULOSKELETAL: Moves all extremities. Strength/ROM intact, No edema, No calf tenderness. NEURO: Alert. Cranial nerves II through XII intact. Normal strength, normal reflexes, no ataxia or drift, decreased sensation over the left cheek with no droop SKIN: Warm, dry. Normal Color Course Course Emergency Course: 57-year-old female presented emergency department for evaluation of left arm and left facial numbness. Patient's symptoms have resolved other than her left facial numbness. Patient had negative CT and CTA showing no acute infarct or thrombus. Patient was af
--- NOTE | 2022-12-30 19:31 | PC.NURSE ---
This RN assumed care of patient.
--- NOTE | 2022-12-30 20:25 | ADMGEN ---
This patient, Felisha Harvey, was admitted to [facility] Room 328-01 at 2008. Patient/family oriented to hospital policies and general routines including ID bracelet, bed and alarms, visiting hours, pain management, procedures, bathroom and other care routines, personal items, smoking policy, room service/diet, and visiting hours. Information on how to activate the Rapid Response Team has been discussed. Patient/Family are encouraged to report perceived risks to care and to ask questions if they do not understand what they are told or what they should do.
[2022-12-30] MEDS: lamoTRIgine 100 MG TABLET 200 MG PO (22:28)
[2022-12-30] MEDS: FAMOTIDINE 20 MG TABLET 40 MG PO (22:28)
[2022-12-30] MEDS: ROSUVASTATIN 10 MG TABLET PO (22:28)
[2022-12-31] VITALS (11 sets, daily range): BP systolic 107–127; BP diastolic 50–73; PULSE 73–103; RESP 16–18; TEMP 36.2–36.4; O2SAT 99–100
--- NOTE | 2022-12-31 00:07 | PM.IMHP ---
H&P: HPI History of Present Illness Date/Time: 12/30/22 19:30 Chief Complaint: Numbness and tingling. Narrative: This is a pleasant 57-year-old female with history of seizures, hyperlipidemia, and GERD who presented to the emergency department via private vehicle for evaluation of numbness and tingling. The patient provides the following history. She felt fine when she got up this morning and while eating breakfast she suddenly developed ringing in her ears and tingling of the left side of her mouth, cheek, and hand. She had similar symptoms about a month ago when she was at the grocery store however at that time she also had feelings of extreme lightheadedness and dizziness and it sounds like she had a near syncopal episode. In the emergency department her vital signs were stable. CTA of the head and neck was unremarkable. ED physician spoke with the neurologist who thought that she should be admitted for TIA/CVA workup as her symptoms have persisted. At the time my evaluation she does not have any specific complaints. She reports that her paresthesias have improved and it seems like they are wearing off like Novocain.? She denies vertigo, vision changes, facial droop, and difficulty speaking and swallowing. No chest pain, palpitations, or sensations of racing heart. Review of Systems Review of Systems: Twelve systems were reviewed and are negative except for as per HPI. [facility] Past Medical History Medical History (Updated 01/01/23 @ 12:07 by Kelly Varela PA-C) Anxiety Gastroesophageal reflux disease High cholesterol History of benign breast biopsy Seizure disorder Surgical History Surgical History (Updated 01/01/23 @ 12:07 by Kelly Varela PA-C) History of eye surgery Family History Family History Other Diabetes mellitus Heart disease Hypertension Social History Social History (Updated 01/01/23 @ 12:08 by Kelly Varela PA-C) Social History: Surrogate medical decision maker: Kelleypiedad Harvey, mother. Code status: Full code. Smoking status: Never smoker Alcohol intake: never Lack of Transportation: No Lack of Food: Never True Current Housing: I Have Housing Concerned About Future Housing: No Difficulty Paying Gas/Electric Bills: No Difficulty Paying for Meds: No Currently Unemployed: No Education: Bachelor's Degree Difficulty w/ Childcare or Family Care: No Living arrangements: with family Occupation/Education: unemployed Spiritual care concerns: No Meds Home Medications and Allergies Home Medications Medication Instructions Recorded Confirmed Type ascorbic acid (vitamin C) 500 mg 500 mg PO DAILY 01/01/20 12/30/22 History tablet (Vitamin C) aspirin 81 mg chewable tablet 81 mg PO DAILY 01/01/20 12/30/22 History cetirizine 10 mg tablet (Zyrtec) 10 mg PO DAILY 01/01/20 12/30/22 History lamotrigine 200 mg tablet 200 mg PO BID 01/01/20 12/30/22 History omega 1-puf-jbl-fish oil 1,000 mg 1 cap PO DAILY 01/01/20 12/30/22 History (120 mg-180 mg) capsule (Fish Oil) rosuvastatin 10 mg tablet 10 mg PO DAILY 01/01/20 12/30/22 History multivit with minerals-iron 18 2 tablet PO DAILY 02/03/20 12/30/22 History mg-folic ac 400 mcg-vit K 25 mcg tablet (Adults Multivitamin) famotidine 40 mg tablet 40 mg PO HS 12/13/20 12/30/22 History Allergies Allergy/AdvReac Type Severity Reaction Status Date / Time sulfamethoxazole Allergy Unknown Verified 12/30/22 15:59 [From Bactrim] trimethoprim [From Bactrim] Allergy Unknown Verified 12/30/22 15:59 ciprofloxacin AdvReac Unknown Verified 12/30/22 15:59 midazolam AdvReac Unknown Verified 12/30/22 15:59 topiramate [From Topamax] AdvReac Hallucinati Verified 12/30/22 15:59 ng Vital Signs Vital Signs - 24 hr 12/30/22 15:21 12/30/22 18:36 12/30/22 15:57 Temperature 97.5 F L Pulse Rate 87 98 99 Respiratory Rate 16 20 11 L Bloo
--- NOTE | 2022-12-31 00:12 | ECHO_ITS ---
Patient Info Name: Felisha Harvey Age: 57 years : 1965 Gender: Female Ht: 63 in Wt: 154 lbs BSA: 1.78 m2 HR: 77 bpm BP: 107 / 56 mmHg Heart Rhythm: Sinus Rhythm Technical Quality: Good Exam Date: 12/31/2022 11:39 AM Exam Location: [facility] Patient Status: Inpatient Admit Date: 12/30/2022 Staff Ordering Physician: Kelly Varela PA-C [employer] Professional: Octavia Eli RDCS Attending Provider: Mic Cifuentes MD Referring Physician: Nichole MILAN; Exam Type: CA echo doppler w bubble study Study Info Indications - parasthesia Complete two-dimensional, color flow and Doppler transthoracic echocardiogram is performed with agitated saline. Contrast/Agitated Saline Contrast/Ag. Saline: Agitated Saline Amount: 10.00 ml Summary 1. Left ventricular chamber dimension is normal. 2. Left ventricular systolic function is normal, estimated at 60-65%. 3. The left ventricular diastolic function is normal. 4. E/e' 7 is not elevated. 5. No pulmonary hypertension, estimated pulmonary arterial systolic pressure is 8 mmHg. Left Ventricle E/e' 7 is not elevated. Left ventricular chamber dimension is normal. Left ventricular systolic function is normal, estimated at 60-65%. The left ventricular diastolic function is normal. Right Ventricle Right ventricular chamber dimension is normal. Right ventricular systolic function is normal. Left Atria Left atrial chamber dimension is normal. Right Atria Right atrial chamber dimension is normal. Atrial Septum Agitated saline injection with and without valsalva maneuver opacified right side cardiac chambers without shunt to left side cardiac chambers. Intact interatrial septum visualized by 2D and agitated saline imaging. Aortic Valve The aortic valve is trileaflet. There is no aortic valve stenosis. There is no aortic valve regurgitation. Pulmonic Valve There is no pulmonic regurgitation. Mitral Valve There is no mitral valve stenosis. There is no mitral valve regurgitation. Tricuspid Valve There is no tricuspid valve regurgitation. No pulmonary hypertension, estimated pulmonary arterial systolic pressure is 8 mmHg. Pericardium/Pleural There is no pericardial effusion. Inferior Vena Cava Normal inferior vena cava with >50% collapse upon inspiration consistent with normal right atrial pressure, 5 mmHg. Aorta The aortic root size at the sinus of Valsalva is normal. Left Ventricular Outflow Tract Name Value Normal LVOT 2D LVOT Diameter 2.1 cm LVOT Doppler LVOT Peak Gradient 3 mmHg LVOT Mean Gradient 1 mmHg LVOT VTI 17 cm LVOT VTI/AV VTI Ratio 0.9 LVOT Stroke Volume 57 ml LVOT CO 4.7 l/min LVOT CI 2.6 l/min/m2 Pulmonic Valve Name Value Normal RVOT Doppler
[2022-12-31 06:12] LABS: Hematocrit 37.2 % (37.0-47.0); Mean Corpuscular HGB Conc 32.3 g/dl (32-36); Mean Corpuscular Hemoglobin 27.5 pg (26-34); Mean Corpuscular Volume 85.3 fl (80-100); Mean Platelet Volume 9.4 fl (7.4-10.4); Platelet Count Result 265 k/mm3 (150-375); Red Blood Count 4.36 M/mm3 (4.2-5.4); Red Cell Distribution Width 13.3 % (11.5-14.5); White Blood Count 5.8 K/mm3 (4.5-10.0)
[2022-12-31 06:22] LABS: Anion Gap 6 mmol/L (8-16); Blood Urea Nitrogen 16 mg/dL (7-17); Calcium 9.2 mg/dL (8.4-10.2); Carbon Dioxide 30 mmol/L (22-30); Chloride 102 mmol/L (98-107); Cholesterol 161 mg/dL (0-200); Estimated CRCL calculation 52 ml/min; Estimated Glomerular Filt Rate 57; Glucose 95 mg/dL (65-110); HDL Direct 70 mg/dL; Magnesium 2.1 mg/dL (1.6-2.3); Sodium 138 mmol/L (137-145); Triglycerides 89 mg/dL (<150)
[2022-12-31 06:33] LABS: LDL Cholesterol Direct 66 mg/dL
[2022-12-31 07:42] LABS: Free T4 Free Thyroxine Reflex 0.87 ng/dL (0.78-2.19)
[2022-12-31] MEDS: LORATADINE 10 MG TABLET PO (08:03)
[2022-12-31] MEDS: lamoTRIgine 100 MG TABLET 200 MG PO (08:03)
[2022-12-31] MEDS: OMEGA 3 POLYUNSAT FATTY ACIDS 1 GM CAP PO (08:03)
[2022-12-31] MEDS: ASPIRIN 81 MG CHEWABLE TABLET PO (08:03)
[2022-12-31] MEDS: ASCORBIC ACID 500 MG TABLET PO (08:04)
[2022-12-31 08:38] LABS: Total Triiodothyronine (T3) 1.18 NG/ML (0.97-1.69)
--- NOTE | 2022-12-31 10:31 | WPDNEURCNPN ---
Assessment and Plan Assessment and plan (1) Left facial numbness: Code(s): R20.0 - Anesthesia of skin Status: Acute (2) Paresthesias in left hand: Code(s): R20.2 - Paresthesia of skin Status: Acute (3) Seizure disorder: Code(s): G40.909 - Epilepsy, unspecified, not intractable, without status epilepticus Status: Acute Plan Ms. Harvey is a 57 year old female with a history of HLD, GERD, anxiety, and epilepsy presenting due to left facial parasthesias that have since self-resolved. Given prolonged nature of symptoms, did not seem like seizure aura. Could be TIA but she does not have any uncontrolled risk factors for vascular event. She denies any headaches so migraine variant seems less likely. - Patient is already on Aspirin 81mg daily and rosuvastatin 10mg daily -- continue - No further neurological work-up needed at this time, will have her follow-up in our clinic in about 3 months Consult date: 12/31/22 Time Seen: 10:31 Reason for consult: Left facial numbness HPI: Felisha Harvey is a 57 year old female with a history of seizures, HLD, GERD, anxiety presenting due to left facial numbness. Patient started to have ringing in her ears and tingling of the left side of her mouth, cheek, and hand when she got up on the morning of presentation. She had similar symptoms when she was at the grocery store but at that time she was feeling very lightheaded and had to sit down. When she presented to [place] ED her vitals were stable. She had a CT and CTA brain/carotid which were negative. She was admitted due to persistence of left facial numbness. MRI brain was negative for any acute changes. This morning, patient notes that the paraesthesias/numbness have gone away. She feels that her hard palate is swollen and was concerned about her heart rate dropping at night. She reported that she was bradycardic to 25. However after discussion with hospitalist, her telemetry did not show any HR below 65. Review of Systems Constitutional: Constitutional: Denies chills, Denies fever(s) and Denies weight loss Eyes: Eyes: Denies diplopia and Denies loss of vision ENT: Denies dizziness, Denies hearing loss and Reports tinnitus Cardiovascular: Cardiovascular: Denies chest pain, Denies syncope and Denies dyspnea Respiratory: Respiratory: Denies cough, Denies dyspnea and Denies wheezing Gastrointestinal: Gastrointestinal: Denies abdominal pain, Denies change in bowel habits and Denies vomiting Genitourinary: Genitourinary: Denies urinary incontinence Musculoskeletal: Musculoskeletal: Reports arthralgias and Denies joint swelling Integumentary/Breasts: Skin/Breast: Denies new lesions and Denies rash Neurologic: Reports as per HPI, Denies dizziness, Denies syncope and Denies loss of vision Psychiatric: Psychiatric: Reports anxiety and Denies depression Endocrine: Endocrine: Denies cold intolerance and Denies heat intolerance Hematologic/Lymphatic: Hematologic/Lymphatic: Denies easy bleeding and Denies easy bruising Allergic/Immunologic: Allergic/Immunologic: Denies no additional allergic/immunologic complaints and Denies wheezing PMFSH Past Medical History Medical History Anxiety Colon cancer screening GERD (gastroesophageal reflux disease) High cholesterol Seizure disorder Family History Family History Other Diabetes mellitus Heart disease Hypertension Social History Social History Smoking status: Never smoker Alcohol intake: never Lack of Transportation: No Lack of Food: Never True Current Housing: I Have Housing Concerned About Future Housing: No Difficulty Paying Gas/Electric Bills: No Difficulty Paying for Meds: No Currently Unemployed: No Education: Bachelor's Degree Difficulty w/ Childcare or Family Care: No
--- NOTE | 2022-12-31 13:44 | PM.DS ---
DS: Admitting Diagnosis Discharge Date 12/31/22 Admitting Diagnosis facial paraesthesia DS: Discharge Diagnosis Discharge Diagnosis (1) Left facial numbness: Code(s): R20.0 - Anesthesia of skin Status: Acute (2) Paresthesias in left hand: Code(s): R20.2 - Paresthesia of skin Status: Acute (3) Multinodular goiter: Code(s): E04.2 - Nontoxic multinodular goiter Status: Acute (4) Seizure disorder: Code(s): G40.909 - Epilepsy, unspecified, not intractable, without status epilepticus Status: Acute DS: Summary Hospital Course Hospital Course: This is a 57-year-old female with history of seizures, hyperlipidemia GERD the present to the ED on 12/31/2022 for evaluation of numbness and tingling. Patient had set in bringing in her ears and tingling on the left side of her mouth, cheek and hand. She has had the symptoms in the past approximately 1 month ago. CTA of the head neck was unremarkable. Workup for TIA/CVA was conducted. MRI of the brain was unremarkable as well. She did not have any vertigo, visual changes, facial droop, slurred speech or extremity weakness. Echocardiogram revealing EF of 60 65% and normal diastolic function. Her symptoms resolved. Neurology consult on patient and they advised a 3 month follow-up with no medication changes at this time. Labs and vital signs are stable she is medically cleared for discharge. Time Spent with Patient Time attestation: Total time spent providing and/or coordinating discharge services: Exam Narrative: GENERAL: Comfortable, no acute distress HENMT: moist mucous membranes EYES: EOM intact b/l NECK: no lymphadenopathy RESPIRATORY: clear to auscultation CARDIO: RRR GI: soft, nontender, bowel sounds present SKIN: no rashes EXTREMITIES: no edema, redness or tenderness; strength 5/5 throughout, no facial droop DS: Data Data Completed and Pending Labs on day of discharge: Labs from last 24 hours 12/31/22 12/30/22 05:50 15:51 WBC 5.8 6.8 RBC 4.36 4.29 Hgb 12.0 11.9 L Hct 37.2 37.1 MCV 85.3 86.5 MCH 27.5 27.7 MCHC 32.3 32.1 RDW 13.3 13.4 Plt Count 265 264 MPV 9.4 9.3 Immature Gran % (Auto) 0.3 Neut % (Auto) 61.4 Lymph % (Auto) 27.9 Howard % (Auto) 7.2 Eos % (Auto) 2.8 Baso % (Auto) 0.4 Lymph # (Auto) 1.89 Howard # (Auto) 0.5 Eos # (Auto) 0.2 Baso # (Auto) 0.0 Abs Immat Gran (auto) 0.02 Absolute Neuts (auto) 4.2 Absolute Nucleated RBC 0.0 Nucleated RBC % 0.0 PT 12.6 INR 0.9 APTT 28.1 Sodium 138 137 Potassium 4.0 3.8 Chloride 102 102 Carbon Dioxide 30 30 Anion Gap 6 L 5 L BUN 16 22 H Creatinine 1.00 0.90 Estim Creat Clear Calc 52 50 Estimated GFR 57 L > 60 Glucose 95 99 Calcium 9.2 9.3 Magnesium 2.1 Total Bilirubin 0.3 AST 32 ALT 27 Alkaline Phosphatase 102 Total Protein 7.0 Albumin 4.4 Triglycerides 89 Cholesterol 161 LDL Cholesterol Direct 66 HDL Direct 70 Vitamin B12 684.0 TSH (Reflex) 4.270 Free T4 0.87 Total T3 1.18 Lamotrigine Pending Discharge Plan Discharge Attending physician on discharge: Luanne Bhandari Consulting providers: uYe Galvez Discharging Clinician: Fany Myers Patient Disposition: Home, Self-Care Activity: as tolerated Diet: regular Discharge Instructions: Follow up with Neurology in 3 months. Discharge disposition: Take medications as prescribed Monitor blood pressures Avoid social areas, you wear a mask when in social settings Encouraged to continue with yearly vaccinations Return to the emergency department if he developed sudden shortness of breath, chest pain, nausea, vomiting, upset stomach or intractable diarrhea Return to the emergency department if you develop fever greater than 100.4 Follow-up with the primary care physician within 1-2 weeks Thank you for choosing [facility] for your healthcare needs S
[2022-12-31] MEDS: IBUPROFEN 400 MG TABLET PO (14:04)
[2023-01-03 09:10] LABS: Lamotrigine Lamictal 12.2 mcg/mL (2.5-15.0)
== END 2022-12-31 16:40 | disposition home or self-care (01) ==
LOC: ANHED 16:10 → ANH3MEDSUR 19:57
PROVIDERS: Physician Assistant; Admitting Provider Hospitalist; Emergency Provider Emergency Medicine; PCP Emergency Medicine; Visit Provider Internal Medicine Critical Care Medicine
DX: R20.0 Anesthesia of skin (principal); R20.2 Paresthesia of skin; E04.2 Nontoxic multinodular goiter; G40.909 Epilepsy, unspecified, not intractable, without status epilepticus; F41.9 Anxiety disorder, unspecified; K21.9 Gastro-esophageal reflux disease without esophagitis; H93.13 Tinnitus, bilateral; J32.0 Chronic maxillary sinusitis; E78.00 Pure hypercholesterolemia, unspecified; Z79.82 Long term (current) use of aspirin; Z79.899 Other long term (current) drug therapy
CPT/HCPCS: 36415; 70496; 70498; 70553; 80048; 80053; 80061; 80175; 82607; 83735; 84439; 84443; 84480; 85025; 85027; 85610; 85730; 93306; 96375; 99285; A9270; A9577; G0378; G0379; Q9967

== ENCOUNTER 2023-01-03 12:39 | Emergency (ER) | payer OTHER, SELFPAY ==
--- NOTE | 2023-01-03 12:44 | ED.GENADULT ---
HPI - General Adult General Chief complaint: Dental/Oral Stated complaint: Mouth Sore Source: patient and RN notes reviewed History of Present Illness HPI narrative: 57 yo F presents to urgent care with complaints of mouth pain and swelling x 3 days, on the roof of her mouth. Pt states she was admitted to the hospital 4 days ago for observation to r/o CVA. Pt states she was having symptoms of mouth numbness at the time. Pt states her pain and swelling developed over night while in the hospital. Pt reports chronic dental pain that moves in location, nothing specific today. Denies any fevers, chills, chest pain, SOB, or vomiting. Denies any trouble swallowing or breathing. Related Data Home Medications Medication Instructions Recorded Confirmed ascorbic acid (vitamin C) 500 mg 500 mg PO DAILY 01/01/20 01/03/23 tablet (Vitamin C) aspirin 81 mg chewable tablet 81 mg PO DAILY 01/01/20 12/30/22 cetirizine 10 mg tablet (Zyrtec) 10 mg PO DAILY 01/01/20 01/03/23 lamotrigine 200 mg tablet 200 mg PO BID 01/01/20 01/03/23 omega 5-hew-uzi-fish oil 1,000 mg 1 cap PO DAILY 01/01/20 01/03/23 (120 mg-180 mg) capsule (Fish Oil) rosuvastatin 10 mg tablet 10 mg PO DAILY 01/01/20 01/03/23 multivit with minerals-iron 18 2 tablet PO DAILY 02/03/20 01/03/23 mg-folic ac 400 mcg-vit K 25 mcg tablet (Adults Multivitamin) famotidine 40 mg tablet 40 mg PO HS 12/13/20 01/03/23 Allergies Allergy/AdvReac Type Severity Reaction Status Date / Time sulfamethoxazole Allergy Unknown Verified 01/03/23 12:52 [From Bactrim] trimethoprim [From Bactrim] Allergy Unknown Verified 01/03/23 12:52 ciprofloxacin AdvReac Unknown Verified 01/03/23 12:52 midazolam AdvReac Unknown Verified 01/03/23 12:52 topiramate [From Topamax] AdvReac Hallucinati Verified 01/03/23 12:52 ng Review of Systems Review of Systems: CONSTITUTIONAL: Denies fever, chills, or sweats. EYES: Denies visual changes, redness, or discharge. ENT: mouth pain and swelling CARDIOVASCULAR: Denies chest pain, palpitations, or edema. RESPIRATORY: Denies cough or dyspnea. GASTROINTESTINAL: Denies abdominal pain, nausea, vomiting, or diarrhea. GENITOURINARY: Denies dysuria or hematuria. SKIN: Denies rash or itching. MUSCULOSKELETAL: Denies back pain, joint pain, or myalgia. NEUROLOGIC: Denies headache, numbness, or weakness. Pertinent positives per HPI. [facility] Past Medical History Medical History (Updated 01/03/23 @ 13:00 by Ashley Flores, THALIA) Anxiety Gastroesophageal reflux disease High cholesterol History of benign breast biopsy Seizure disorder Surgical History Surgical History (Updated 01/01/23 @ 12:07 by Kelly Varela PA-C) History of eye surgery Family History Family History Other Diabetes mellitus Heart disease Hypertension Social History Social History (Updated 01/01/23 @ 12:08 by Kelly Varela PA-C) Social History: Surrogate medical decision maker: Kelley Harvey, mother. Code status: Full code. Smoking status: Never smoker Alcohol intake: never Lack of Transportation: No Lack of Food: Never True Current Housing: I Have Housing Concerned About Future Housing: No Difficulty Paying Gas/Electric Bills: No Difficulty Paying for Meds: No Currently Unemployed: No Education: Bachelor's Degree Difficulty w/ Childcare or Family Care: No Living arrangements: with family Occupation/Education: unemployed Spiritual care concerns: No Comments At the time of my signature, I reviewed and agree with the nursing past medical, surgical, social, and family history. There is no relevant family history pertinent to the patient complaint. Exam Narrative: GENERAL: This is a well-nourished, well-developed patient, in no apparent distress. HEAD: normocephalic, atraumatic. EYES: Sclera clear/white. Vision is grossly intact. EARS: External ears norm
[2023-01-03 12:45] VITALS: BP 137/72; PULSE 100; RESP 16; TEMP 36.8; O2SAT 99
== END 2023-01-03 13:02 | disposition home or self-care (01) ==
PROVIDERS: Emergency Provider Nurse Practitioner Family; PCP Emergency Medicine
DX: K12.2 Cellulitis and abscess of mouth (principal); Z79.82 Long term (current) use of aspirin
CPT/HCPCS: 99213; G0463

== ENCOUNTER 2023-01-20 16:57 | Outpatient (CLI) | payer OTHER, SELFPAY ==
--- NOTE | ~2023-01-20 | MR_ITS ---
EXAMINATION: MR knee LT wo con DATE: 01/20/2023 17:35 INDICATION: PAIN IN LEFT KNEE TECHNIQUE: Magnetic resonance imaging (MRI) of the left knee was performed without intravenous contra st. Sequences included axial PD-weighted FS FSE, coronal PD-weighted FSE and PD-weighted FS FSE, sagi ttal PD-weighted FSE, and sagittal T2-weighted FS FSE. COMPARISON: X-ray left knee 12/17/2022 FINDINGS: Medial compartment: Small apical tear. Meniscal fraying at the junction of the posterior horn and body. Moderate diffuse cartilage thinning. Mild osteophytosis. Lateral compartment: Focal intermediate signal extending to the undersurface of the meniscal body. Moderate diffuse cartil age thinning. Patellofemoral compartment: Mild diffuse cartilage thinning. Retinacula intact. Ligaments and tendons: The ACL, PCL, MCL, and LCL are intact. Remaining flexor and extensor tendons are intact. Fluid: No significant fluid collection. Osseous/other: Linear, low signal abnormality in the inferior pole of the patella with mild surrounding marrow edema . The marrow signal is otherwise benign and homogenous. Mild anterior subcutaneous edema. IMPRESSION: Microtrabecular fracture of the inferior pole of the patella, with mild surrounding marrow edema. Apical tear of the body of the medial meniscus. Small oblique undersurface tear of the body of the lateral meniscus, with healing change. Reviewed, dictated and finalized at location K. IMPRESSION: Microtrabecular fracture of the inferior pole of the patella, with mild surroun ding marrow edema. Apical tear of the body of the medial meniscus. Small oblique undersurface tear of the body of the lateral meniscus, with heali ng change.
== END 2023-01-20 16:58 | disposition home or self-care (01) ==
LOC: ANHIMG 16:59
PROVIDERS: PCP Emergency Medicine; Visit Provider Emergency Medicine
DX: S82.002A Unspecified fracture of left patella, initial encounter for closed fracture (principal); S83.242A Other tear of medial meniscus, current injury, left knee, initial encounter; S83.282A Other tear of lateral meniscus, current injury, left knee, initial encounter; T14.90XA Injury, unspecified, initial encounter
CPT/HCPCS: 73721

== ENCOUNTER 2023-07-09 13:40 | Outpatient (CLI) | payer OTHER, SELFPAY ==
--- NOTE | ~2023-07-09 | MM_ITS ---
EXAMINATION: MM screening mitchell BI w shiv HISTORY: Screening mammogram TECHNIQUE: Craniocaudal and mediolateral oblique 3-D tomosynthesis images were obtained and synthetic 2-D images were generated. CAD analysis was submitted and interpreted. COMPARISON: 07/17/2021, 02/01/2020, 10/23/2017 BREAST PARENCHYMAL COMPOSITION: The breasts are heterogeneously dense, which may obscure small masses . FINDINGS: Chronic left breast masses are stable to slightly decreased in size, consistent with benign findings. No suspicious mass, calcification, or architectural distortion are identified in either br east to suggest malignancy. There has been no suspicious interval change. IMPRESSION: 1. No mammographic evidence of malignancy. 2. Recommend routine screening mammography in one year. BI-RADS Category 2: Benign finding(s). Reviewed, dictated and finalized at location A. DLE CARVER
== END 2023-07-09 13:41 | disposition home or self-care (01) ==
LOC: ANHIMG 13:45
PROVIDERS: PCP Emergency Medicine; Visit Provider Emergency Medicine
DX: Z12.31 Encounter for screening mammogram for malignant neoplasm of breast (principal)
CPT/HCPCS: 77063; 77067

== ENCOUNTER 2024-04-26 14:32 | Outpatient (CLI) | payer OTHER, SELFPAY ==
--- NOTE | ~2024-04-26 | XR_ITS ---
XR chest 2V INDICATION: Acute bronchitis TECHNIQUE: 2 view chest. FINDINGS: No prior studies for comparison. There is mild bilateral interstitial prominence and peribronchial cuffing. There is no focal consoli dation, pleural effusion, or pneumothorax. The cardiomediastinal silhouette is normal. IMPRESSION: 1. Findings most consistent with bronchiolitis versus an atypical or viral pneumonia. Reviewed, dictated and finalized at location B. IMPRESSION: 1. Findings most consistent with bronchiolitis versus an atypical or viral [facility].
== END 2024-04-26 14:33 | disposition home or self-care (01) ==
PROVIDERS: PCP Emergency Medicine; Visit Provider Emergency Medicine
DX: J20.9 Acute bronchitis, unspecified (principal)
CPT/HCPCS: 71046

== ENCOUNTER 2025-03-03 12:59 | Outpatient (CLI) | payer OTHER, SELFPAY ==
--- NOTE | ~2025-03-03 | MM_ITS ---
EXAMINATION: MM screening [facility] HISTORY: Screening TECHNIQUE: Craniocaudal and mediolateral oblique 3-D tomosynthesis images were obtained and synthetic 2-D images were generated. CAD analysis was submitted and interpreted. COMPARISON: Comparison to multiple prior studies sequentially, with oldest reviewed study dated 08/29/2015. BREAST PARENCHYMAL COMPOSITION: There are scattered areas of fibroglandular density. FINDINGS: There is no evidence of suspicious mass, calcification, or architectural distortion to suggest malignancy in either breast. Scattered benign-appearing calcifications are present. IMPRESSION: 1. No mammographic evidence of malignancy. 2. Recommend routine screening mammography in one year. BI-RADS Category 2: Benign finding(s). Reviewed, dictated and finalized at location B.
--- NOTE | ~2025-03-03 | DEXA_ITS ---
Bone Density Report Name: JOSE MANUEL HUMPHREY Age: 59 Sex: Female Ethnicity: White Date of : 1965 Indication: postmenopausal; screening for osteoporosis; height loss; seizure disorder; Referring Provider: K[place]INA [place] Study: Bone densitometry was performed. Exam Date: March 03, 2025 Accession number: [id number] Bone Density: Region BMD T-score Z-score Classification AP Spine(L1-L4) 1.001 -0.4 1.0 Normal Femoral Neck (Left) 0.622 -2.0 -0.8 Osteopenia Total Hip (Left) 0.831 -0.9 0.0 Normal Femoral Neck (Right) 0.517 -3.0 -1.7 Osteoporosis Total Hip (Right) 0.817 -1.0 -0.1 Normal Femoral Neck Mean 0.569 -2.5 -1.3 Osteoporosis Total Hip Mean 0.824 -1.0 -0.1 Normal World Health Organization criteria for BMD impression classify patients as: Normal (T-score at or above -1.0), Osteopenia (T-score between -1.0 and -2.5), or Osteoporosis (T-score at or below -2.5). 10-year Fracture Risk: FRAX not reported because: Some T-score for Spine Total or Hip Total or Femoral Neck at or below -2.5 Clinical Information Provided by Patient: Has used the following medications: Vitamin D, multi Has the following medical conditions: Any Seizure Disorders Patient maximum height was 63 Menopause Age: 50 No regular weight bearing exercise Drinks caffeinated beverages Onset of menses at age 12 Number of children 0 Impression: The patient has osteoporosis, based on the Right Femoral Neck T-score. Discussion: INCREASED RISK OF FRACTURE. BONE DENSITY IS UNDESIRABLY LOW AT ONE OR MORE SKELETAL SITES, CONSISTENT WITH POSTMENOPAUSAL OSTEOPOROSIS. This patient's lowest T-score meets the World Health Organization's (WHO) criteria for osteoporosis at one or more sites (T-score -2.5 or below). In untreated patients, the risk of osteoporotic fracture increases approximately two-fold for each 1.0 SD decrease in T-score. Low bone density is not the only risk factor for fracture; also consider factors such as patient's age, frailty or poor health, risk of falling, risk of injury, previous osteoporotic fracture, family history of osteoporosis, cigarette smoking, low body weight, etc. Not everyone with low bone mineral density has osteoporosis; osteomalacia and other metabolic bone disorders should also be considered. Patients who have osteoporosis should be evaluated for specific diseases and conditions (secondary causes) that may cause or contribute to bone loss. The [place] [employer]ocrin[employer] (AACE) and National Osteoporosis Foundation (NOF) recommend pharmacologic intervention for all postmenopausal women whose T-score is in this range. The patient should follow a healthful lifestyle (good nutrition with adequate calcium and vitamin D, and appropriate weight-bearing exercise). Follow-Up: Consider a repeat BMD and Vertebral Fracture Assessment (VFA) exam in 2 years or sooner if medically necessary, to reassess this patient's status. Reported by: JERONIMO on 03/03/2025 1:45:00 PM. Reviewed, dictated and finalized at location A.
--- OUTSIDE RECORDS SUMMARY | 2025-03-03 13:17 | XMS_ITS | Clinical Summary ---
[facility] Address [address] [place] [address] Care Team Providers Care Building Service Worker Name Role Phone Vincent Holm MD Primary Care Provider Allergies Active Allergy Reactions Criticality Noted Date Comments Ciprofloxacin Dexamethasone Hallucinations Medium 12/15/2017 Midazolam Sulfa (Sulfonamide Antibiotics) Sulfamethoxazole Other (See comments) Reaction: Unknown, Sulfanilamide Topiramate Trimethoprim Other (See comments) Reaction: Unknown, Medications olopatadine (PATANASE) 0.6 % spray,non-aeroso l spray 2 spray by intranasal route 2 times every day in each nostril 1 spray 0 6 Active Additional Information Patient not taking.Reported on 02/18/2023 cholecalciferol (VITAMIN D3) 2,000 unit capsule take 1 by oral route every day 0 0 Active aspirin 81 mg tablet take 1 tablet (81MG) by oral route every day 0 1 Active ascorbic acid (ascorbic acid with siddharth hips) 500 mg tablet,chewable Take one tablet daily 0 3 Active Additional Information Patient not taking.Reported on 02/18/2023 fluticasone (FLONASE) 50 mcg/actuation nasal spray spray 1 spray by intranasal route every day in each nostril 0 spray 0 5 Active Additional Information Patient not taking.Reported on 02/18/2023 multivitamin capsule take 1 capsule by oral route every day 0 2 Active omega 5-xhj-pbv-other om3-D3 2,200 mg-1,000 unit/5 mL liquid Take by mouth. Activ e cetirizine (ZyrTEC) 10 mg tablet Take 1 tablet (10 mg total) by mouth daily Active calcium carbonate-vitami n D3 1,250mg (500mg elemental) - 200 units per tablet Take 1 tablet by mouth 2 (two) times a day with meals. Active folic acid (FOLVITE) 1 mg tablet Take 1 tablet (1 mg total) by mouth daily. 30 tablet 11 8 Active HYDROcodone-acet aminophen (NORCO) 5-325 mg per tabletIndication s:Pain TK 1 T PO Q 4 H PRN P FOR 2 DAYS 0 8 Active lamoTRIgine (LaMICtal) 100 mg tablet TK 2 TS PO BID 1 9 Active diazePAM (VALIUM) 2 mg tablet TAKE 1 TABLET BY MOUTH EVERY NIGHT AT BEDTIME NEEDED FOR DIZZINESS 30 tablet 9 Active famotidine (PEPCID) 40 mg tablet 3 Active rosuvastatin (CRESTOR) 10 mg tablet Take 1 tablet (10 mg total) by mouth daily 3 Active meloxicam (MOBIC) 15 mg tabletIndication s:Chronic right shoulder pain,Left knee pain, unspecified chronicity TAKE 1 TABLET (15 MG TOTAL) BY MOUTH DAILY. 30 tablet 1 4 Active Active Problems Problem Noted Date Diagnosed Date Complex tear of lateral meni scus of left knee as current injury 05/27/2023 Chronic right shoulder pain 04/01/2023 Right elbow pain 04/01/2023 Left knee pain 04/01/2023 Syncope 02/10/2018 Dizziness 02/10/2018 Bulging of lumbar intervertebral disc 12/11/2017 Assessment & Plan (12/11/2017 5:27 PM CDT): Worsening symptoms Back pain with right-sided sciatica 12/11/2017 Assessment & Plan (12/11/2017 5:27 PM CDT): Acutely symptomatic BMI 24.0-24.9, adult 12/11/2017 Assessment & Plan (12/11/2017 5:27 PM CDT): With BMI 25 or less this patient is a healthy weight for age Hospital discharge follow-up 12/11/2017 Assessment & Plan (12/11/2017 5:27 PM CDT): I, Tamara Goodwin LATHE SPOTTER have personally reviewed pertinent Hospital/ER data including [employer] and Care Everywhere if available. This patient's discharge medication list has been reviewed and reconciled with her medication list in the office chart and has also been reviewed with patient and/or caregiver. I have noted any changes. Snoring 10/23/2017 Assessment & Plan (10/23/2017 3:31 PM CDT): She reports waking up gasping for air for a few seconds with loud snoring that wakes her up at night. She is concerned about KATERINA. Recommend referral to sleep medicine for evaluation. Urinary frequency 10/23/2017 Assessment & Plan (10/23/2017 3:32 PM CDT): Urine dip not very revealing. Send urine for microscopy and reflex to culture. Additional recommendations pending. Epigastric pain 10/23/2017 Assessment & Plan (10/23/2017 3:33 PM CDT): Diffuse abdominal pain but increased discomfort in the epigastric area. Recommend screening blood work- lipase, CBC, CMP and Ultrasound of the RUQ for further evaluation. Recommend omeprazole 40mg daily. She will let me know if symptoms do not improve and consider GI referral or adding on an upper endoscopy when she schedules her routine colonoscopy. 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 I offered a neurology referral but she declines. She wants to see [facility] at [facility] and will let me know if she needs a referral. Vestibular neuronitis 11/20/2013 Overview (10/11/2016): VESTIBULAR NEURONITIS Resolved Problems Problem Noted Date Diagnosed Date Resolved Date BMI 23.0-23.9, adult 10/23/2017 019 Assessment & Plan (10/23/2017 3:35 PM CDT): BMI is normal. Immunizations Immunization Administration Dates Next Due Influenza, Quadrivalent, Spl it, Intramuscular 04/06/2016 Influenza, Quadrivalent, Spl it, Preservative Free, Intramuscular 03/23/2018 Influenza, Split 04/06/2010 Influenza, Trivalent, IM (MDV) 04/23/2013,2011,05/01/2011 Influenza, Trivalent, Preser vative Free, Intramuscular 05/07/2014 Influenza, Trivalent, Split, Preservative Free, Intradermal 04/24/2015 Influenza, Unspecified 04/07/2017 Surgical History Surgery Date Site/Laterality Comments OVARIAN CYST REMOVAL ovarian cyst EYE SURGERY eye surgery BREAST BIOPSY Breast biopsy OTHER SURGICAL HISTORY thyroid nodule: biopsy-benign Medical History Medical History Date Comments Hx Other Medical thyroid nodule Hx Other Medical Allergies, seas onal; Comments: JOSHUA 04/19/2014 - Hx Other Medical epilepsy; Comme nts: JOSHUA 04/19/2014 - Hx Other Medical eye surgery; Co mments: JOSHUA 04/19/2014 - Hypercholesteremia Family History Medical History Relation Name Comments Coronary artery disease Father Allison nary artery disease; Cancer Other Family history of Cancer, unknown; Other Paternal Grandmother congeni ital heart disease; Relation Name Status Comments Father Other Paternal Grandmother Social History Tobacco Use Types Packs/Day Years Used Date Smoking Tobacco: Never Smokeless Tobacco: Never Tobacco Cessation:Counseling Given: Not Answered Alcohol Use Standard Drinks/Week Comments No 0 (1 standard drink = 0.6 oz pur e alcohol) PHQ-2 Answer Date Recorded PHQ-2 Score 0 02/25/2019 Comments Unknown Sex and Gender Information Value Date Recorded Sex Assigned at Not on file Legal Sex Female 12:07 PM [employer] Gender Identity Not on file Sexual Orientation Not on file Obstetrics History Last Filed Vital Signs Vital Sign Reading Time Taken Comments Blood Pressure 104/76 03/23/2018 9:41 AM CDT Pulse 80 03/23/2018 9:41 AM CDT Temperature 36.6 C (97.9 F) 03/23/2018 9:41 AM CDT Respiratory Rate 16 03/23/2018 9:41 AM CDT Oxygen Saturation 99% 03/23/2018 9:41 AM CDT Inhaled Oxygen Concentration - - Weight 70.3 kg (155 lb) 05/27/2023 1:02 PM [employer] Height 160 cm (5' 3) 05/27/2023 1:02 PM [employer] Body Mass Index 27.46 05/27/2023 1:02 PM [employer] Plan of Treatment Health Maintenance Due Date Last Done Comments Cervical Cancer Screening 1965 Hepatitis C Screening 1965 DTaP/Tdap/Td Vaccine (1 - Tdap) 1976 Hepatitis B Screening 09/06/1983 Regular Well Visit/Exam 18-64 09/06/1983 Zoster Vaccine (1 of 2) 09/06/2015 Colon Cancer Screening-Colonoscopy 10/14/2018 10/14/2008 Breast Cancer Screening-Mammogram 10/23/2018 10/23/2017, 01/05/2015, 09/01/2013, Additional history exists Depression Screening 03/23/2019 03/23/2018, 02/10/2018, 12/15/2017, Additional history exists Covid-19 Vaccine ( season) 2024 05/22/2021, 2020, 08/03/2020 Influenza Vaccine (#1) 2025 2, 05/01/2021, 04/26/2020, Additional history exists Colon Cancer Screening-CT Colonography Discontinued 10/14/2008 Colon Cancer Screening-DNA Stool Discontinued 10/14/2008 Colon Cancer Screening-Sigmoidoscopy Discontinued 10/14/2008 Colon Cancer Screening-FIT Discontinued 08/06/2016, Pneumococcal vaccine <65 Aged Out No longer eligible based on patient's age to complete this topic Procedures Procedure Name Priority Date/Time Associated Diagnosis Comments SCREENING MAMMOGRAM BILATERAL W KENNETH Schedule Routine, Read Routine (OP Routine) 10/23/2017 12:48 PM CDT Screening breast examination HM FOBT Routine 08/06/2016 COLONOSCOPY Routine 10/14/2008 from Last 3 Months or Most Recently Relevant to Health Maintenance Results * Screening Mammogram Bilateral W Kenneth (10/23/2017 12:48 PM CDT) Anatomical Region Laterality Modality Breast Bilateral Mammography Narrative 10/29/2017 10:37 AM CDT Screening Mammogram Bilateral W Kenneth: 10/23/17 Clinical: Screening breast examination. Prior Study Comparisons: Compared to: 08/29/2015 Diagnostic Mammogram Left W Kenneth, 01/05/2015 DIAGNOSTIC MAMMOGRAM BILATERAL W KENNETH, and 09/29/2012 Diagnostic Mammogram Bilateral W Kenneth As a result of converting prior patient data to a new electronic medical record, the type of prior mammogram may have a wrong exam descriptor. The inserted date may reflect the date of interpretation rather than the actual study date. Findings: Screening Mammogram Bilateral W Kenneth Left 1) Mass: There is a mass seen in the left breast at 9 o'clock in the posterior depth. Compared to the previous study, there are no significant changes. 2) Calcifications: There are dystrophic calcifications in a grouped distribution seen in the left breast. Compared to the previous study, there are no significant changes. Right No significant masses, malignant type calcifications, skin thickening, nipple retraction, or significant lymphadenopathy is noted in this breast. The CAD review showed no significant findings. The breasts are heterogeneously dense, which may obscure small masses. Impression: BI-RADS ATLAS category (overall): 2 Benign There is no mammographic evidence of malignancy. Routine Screening Mammogram in 1 Yr is recommended for bilateral Overall Assessment: 2 - Benign Yaa Ac MD IMG MAMMO PROCEDURES Final Result * FOBT (08/06/2016) FOBT Normal Historical Provider HEALTH MAINTENANCE Final Result * Colonoscopy (10/14/2008) Anatomical Region Laterality Modality Other Historical Provider ENDOSCOPY PROCEDURES Leatha l Result from Last 3 Months or Most Recently Relevant to Health Maintenance Insurance [facility] Care Teams Building Service Worker Relationship Specialty Start Date End Date Vincent Holm MD [address] [place] [address] PCP - General Family Medicine 12/27/22
--- OUTSIDE RECORDS SUMMARY | 2025-03-03 13:17 | XMS_ITS | Encounter Summary ---
Author Organization [employer] [facility] Address 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 Gender Identity Not on file Sexual Orientation Not on file documented as of this encounter Plan of Treatment Not on file documented as of this encounter Procedures Procedure Name Priority Date/Time Associated Diagnosis Comments CT ABDOMEN PELVIS W CONTRAST Stat 09/20/2008 11:16 AM CDT CBC WITH DIFFERENTIAL Stat 09/20/2008 9:31 AM CDT C-REACTIVE PROTEIN Stat 09/20/2008 9: 31 AM CDT COMPREHENSIVE METABOLIC PANEL Stat 09/20/2008 9:31 AM CDT POC URINALYSIS DIPSTICK AUTOMATED Routine 09/20/2008 9:29 AM CDT POC , URINE Routine 09/20/2008 9:29 AM CDT URINALYSIS WITH MICROSCOPIC Stat 09/20/2008 9:11 AM CDT documented in this encounter Results * CT ABDOMEN PELVIS W CONTRAST (09/20/2008 11:16 AM CDT) Anatomical Region Laterality Modality Abdomen Other 09/20/2008 11:1 6 AM CDT Narrative 09/20/2008 11:46 AM CDT [address] [address] Admit Date: 09/20/2008 MILAGRO FELISHA S Sex: F Admit Prov: ER, AUTHORIZED P Date: 1965 Primary Care Prov: ELGIN MURRAY CMRN: [id number] Room: [facility] SSN: [id number] IMAGING SERVICES Ordering Prov: N/A Accession Number: [id number] Interpretation CT scan of the abdomen and pelvis with IV contrast 09/20/08. Clinical History: Abdominal and flank pain. Technique: 5 mm contiguous axial images were obtained from the lung bases to the symphysis pubis following IV contrast administration. Findings: The lung bases are clear. The liver, spleen, pancreas, adrenal glands and kidneys are normal. There is no bowel dilatation or wall thickening. The caliber of the aorta is normal. There is no free air, free fluid or lymphadenopathy. In the pelvis, the bowel loops, appendix, uterus, adnexa and bladder are normal. There is no mass or free fluid. Impression: Negative CT scan of the abdomen and pelvis. . Dictated by: FELISHA PRESTON 09/20/2008 11:42 Electronically signed by: FELISHA PRESTON 09/20/2008 11:45 Procedure Note Felisha Preston MD - 09/20/2008 [place] [place], [place] [address] Admit Date: 09/20/2008 MILAGRO FELISHA S Sex: F Admit Prov: ER, AUTHORIZED P Date: 1965 Primary Care Prov: ELGIN MURRAY CMRN: [id number] Room: [facility] SSN: [id number] IMAGING SERVICES Ordering Prov: N/A Interpretation CT scan of the abdomen and pelvis with IV contrast 09/20/08. Clinical History: Abdominal and flank pain. Technique: 5 mm contiguous axial images were obtained from the lungbases to the symphysis pubis following IV contrast administration. Findings: The lung bases are clear. The liver, spleen, pancreas,adrenal glands and kidneys are normal. There is no bowel dilatation orwall thickening. The caliber of the aorta is normal. There is no freeair, free fluid or lymphadenopathy. In the pelvis, the bowel loops, appendix, uterus, adnexa and bladderare normal. There is no mass or free fluid. Impression: Negative CT scan of the abdomen and pelvis. . Dictated by: FELISHA PRESTON 09/20/2008 11:42 Electronically signed by: FELISHA PRESTON 09/20/2008 11:45 us Lemuel Peters MD CT ORDERABLES Final R esult * CBC WITH DIFFERENTIAL (09/20/2008 9:31 AM CDT) MCV 85.3 82.0 - 99.0 fL [facility] PLATELETS 222 140 - 350 K/uL [facility] HEMOGLOBIN 12.6 11.8 - 14.8 g/dL [facility] RDW 12.8 11.5 - 14.5 % [facility] WBC 4.9 4.0 - 9.8 K/uL [facility] MCH 29.0 27.2 - 32.6 pg [facility] MPV 10.4 9.3 - 12.4 fL [facility] HEMATOCRIT 37.1 35.5 - 44.0 % [facility] RDW-STDEV 39.7 37.1 - 48.7 fL [facility] RBC 4.35 3.90 - 4.90 M/uL [facility] MCHC 34.0 31.5 - 35.5 % [facility] BASOPHILS 0 0 - 2 % [facility] BASOPHILS ABSOLUTE 0.01 0.00 - 0.20 K/uL [facility] MONOCYTES 5 3 - 13 % [facility] MONOCYTE ABSOLUTE 0.26 0.10 - 1.30 K/uL [facility] NEUTROPHILS 65 45 - 70 % [facility] NEUTROPHIL ABSOLUTE 3.19 1.90 - 7.00 K/uL [facility] EOSINOPHILS 1 0 - 7 % [facility] EOSINOPHIL ABSOLUTE 0.06 0.00 - 0.70 K/uL [facility] LYMPHOCYTES 29 16 - 45 % [facility] LYMPHOCYTE ABSOLUTE 1.42 0.70 - 4.50 K/uL [facility] Blood specimen (specimen) 09/20/2008 9:31 AM CDT 09/20/2008 9:31 AM CDT Lemuel Peters MD HEMATOLOGY ORDERABLES E dited Performing Organization Address City/[facility] Co de Phone Number INTERFACE SYSTEM Refer to clinic/hospital department [facility] CLIA# [id number] [address] [facility] [place] [address] * C-REACTIVE PROTEIN (09/20/2008 9:31 AM CDT) CRP <0.2 0.0 - 0.8 mg/dL [facility] Blood specimen (specimen) 09/20/2008 9:31 AM CDT 09/20/2008 9:31 AM CDT us Lemuel Peters MD CHEMISTRY ORDERABLES Fi nal Result Performing Organization Address City/[facility] Co de Phone Number INTERFACE SYSTEM Refer to clinic/hospital department [facility] CLIA# [id number] [address] [place] [address] * (ABNORMAL) COMPREHENSIVE METABOLIC PANEL (09/20/2008 9:31 AM CDT) CALCIUM 9.0 8.6 - 10.2 mg/dL [facility] ALBUMIN 4.5 3.4 - 4.8 g/dL [facility] CHLORIDE 101 96 - 108 mmol/L [facility] CREATININE 0.76 0.51 - 0.95 mg/dL [facility] ALT 18 0 - 31 U/L [facility] SODIUM 137 135 - 145 mmol/L [facility] ALKALINE PHOSPHATASE 68 35 - 104 U/L [facility] CO2 26 22 - 30 mmol/L [facility] BILIRUBIN TOTAL 0.4 0.2 - 1.0 mg/dL [facility] POTASSIUM 4.0 3.5 - 4.9 mmol/L [facility] TOTAL PROTEIN 7.5 6.3 - 8.6 g/dL [facility] GLUCOSE 100(H) 65 - 99 mg/dL [facility] AST 17 12 - 32 U/L [facility] BUN 13 6 - 20 mg/dL [facility] GFR, >60 >=60 mL/min/1. 7 sq meter [facility] GFR >60 >=60 mL/min/1. 7 sq meter [facility] Comment: Modification of Diet in Renal Disease (MDRD) study formula. Estimated GFR rate interpretative information for both Americans and non- Americans is available on the [facility] Intranet at: [email or web address] Select: Lab Policies and Procedures Select: Reference Ranges - GFR Blood specimen (specimen) 09/20/2008 9:31 AM CDT 09/20/2008 9:31 AM CDT us Lemuel Peters MD CHEMISTRY ORDERABLES Ed ited Performing Organization Address [facility] de Phone Number INTERFACE SYSTEM Refer to clinic/hospital department [facility] CLIA# [id number] [address] [place] [address] * POC , URINE (09/20/2008 9:29 AM CDT) Pathologist [facility] , URINE POC Negative Negative [facility] SPECIFIC GRAVITY UA 1.020 1.001 - 1.035 [facility] Urine specimen (specimen) 09/20/2008 9:29 AM CDT 09/20/2008 9:29 AM CDT us Authorized P Er POINT OF CARE TESTING Final Resu lt Performing Organization Address [facility] de Phone Number INTERFACE SYSTEM Refer to clinic/hospital department [facility] CLIA# [id number] [address] [place] [address] * (ABNORMAL) POC URINALYSIS DIPSTICK AUTOMATED (09/20/2008 9:29 AM CDT) [facility] BLOOD UA 1+(A) Negative [facility] PROTEIN UA Negative Negative [facility] LEUKOCYTE ESTERASE UA Negative Negative [facility] UROBILINOGEN UA Normal <=1 mg/dL [facility] SPECIFIC GRAVITY UA 1.020 1.001 - 1.030 [facility] GLUCOSE UA Negative Negative [facility] COLOR UA Yellow [facility] NITRITE UA Negative Negative [facility] BILIRUBIN UA Negative Negative [facility] PH UA 5.0 5.0 - 8.0 [facility] KETONES UA Negative Negative [facility] CLARITY UA Slightly cloudy [facility] 09/20/2008 9:29 AM CDT 09/20/2008 9:29 AM CDT us Authorized P Er POINT OF CARE TESTING Final Resu lt INTERFACE SYSTEM Refer to clinic/hospital department [facility] CLIA# [id number] [address] [place], [place] [address] * (ABNORMAL) URINALYSIS WITH MICROSCOPIC (09/20/2008 9:11 AM CDT) WBC UA 1 0 - 5 /HPF [facility] PROTEIN UA Negative Negative [facility] RBC UA 2 0 - 4 /HPF [facility] Comment:Verified by repeat a nalysis. BILIRUBIN UA Negative Negative [facility] PH UA 5.5 5.0 - 8.0 [facility] BACTERIA UA 1+(A) None Seen /HPF [facility] LEUKOCYTE ESTERASE UA Negative Negative [facility] CLARITY UA Slt. Cloudy(A) Clear [facility] GLUCOSE UA Negative Negative [facility] BLOOD UA Trace(A) Negative [facility] Comment:Verified by repeat a nalysis. EPITHELIAL CELLS, URINE Many /HPF [facility] NITRITE UA Negative Negative [facility] SPECIFIC GRAVITY UA 1.017 1.001 - 1.035 [facility] UROBILINOGEN UA <1 <=1 mg/dL [facility] COLOR UA Yellow [facility] KETONES UA Negative Negative [facility] Urine specimen (specimen) 09/20/2008 9:11 AM CDT 09/20/2008 9:38 AM CDT us Lemuel Peters MD URINE ORDERABLES Final Result INTERFACE SYSTEM Refer to clinic/hospital department [facility] CLIA# [id number] [address] [place] [address] documented in this encounter Visit Diagnoses Not on filedocumented in this encounter Care Teams Director Specialty Relationship Specialty Start Date End Date Yaa Ac MD PCP - General 06/23/15 documented as of this encounter
--- OUTSIDE RECORDS SUMMARY | 2025-03-03 13:17 | XMS_ITS | Clinical Summary ---
Author Organization [facility] Address [address] [place] [address] Care Team Providers Care Commission Associate Name Role Phone Vincent Holm Primary Care Provider [phone] Social History Tobacco Use Types Packs/Day Years Used Date Smoking Tobacco: Never Assessed Comments Unknown Sex and Gender Information Value Date Recorded Sex Assigned at Not on file Legal Sex Female 2:17 PM CDT Gender Identity Not on file Sexual Orientation Not on file Plan of Treatment Health Maintenance Due Date Last Done Comments Hepatitis C Virus (HCV) Screening 1965 Mammogram 1965 TdaP Immunization 1965 Hepatitis B Immunization (1 of 3 - 19+ 3-dose series) 1984 Pap Smear 1986 Cervical Cancer Screening (CCS) 09/06/1995 HPV/Cotest 09/06/1995 Cologuard 2010 Colonoscopy 2010 Colorectal Cancer Screening 2010 Immunochemical Fecal Occult Blood 2010 Pneumococcal Immunization (50+ years) (1 of 1 - PCV) 09/06/2015 Zoster Immunization (1 of 2) 09/06/2015 SARS-COV-2 Immunization ( season) 2024 05/22/2021, 2020, 08/03/2020 Influenza Immunization (#1) 2025 10/0 12/2022, 04/04/2022, 05/01/2021, Additional history exists Respiratory Syncytial Virus (RSV) Immunization (Adult) (1 - 1-dose 75+ series) 2040 Human Papillomavirus (HPV) Immunization Aged Out No longer eligible based on patient's age to complete this topic Meningococcal Immunization (ACWY) Aged Out No longer eligible based on patient's age to complete this topic Rotavirus Immunization Aged Out No lo nger eligible based on patient's age to complete this topic Insurance MEDICAID [employer] Care Teams Commission Associate Relationship Specialty Start Date End Date Vincent Holm [address] [place] [address] PCP - General Family Medicine 02/25/23
--- OUTSIDE RECORDS SUMMARY | 2025-03-03 13:17 | XMS_ITS | Clinical Summary ---
Author Organization [facility] [employer] Address [address] [place] [address] Care Team Providers Care Java Developer Architect Name Role Phone Unavailable Primary Care Provider Unavailabl e Source Comments [facility] [employer] [facility],non-owned Affiliates and Associated Physician Practices is amultiple site organization consisting of ambulatory clinics and hospital sitesin [place], [place], [place] and [place]. This disclosure is being madepursuant to the Care Everywhere program and may not contain all information available regarding this patient. 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 SPECIALIST Gender Identity Not on file Sexual Orientation Not on file Plan of Treatment Health Maintenance Due Date Last Done Comments COLOGUARD (AGES 45-75) - COL ON CA SCREENING 1965 COLON MONITORING 1965 COLONOSCOPY - COLON CA SCREENING 1965 CT COLONOGRAPHY - COLON CA SCREENING 1965 Colorectal Cancer Screening 1965 FIT - COLON CA SCREENING 1965 FLEX SIG - COLON CA SCREENING 1965 LIPID TESTING 1965 MAMMOGRAM 1965 HIV SCREENING 1980 HEPATITIS C SCREENING 09/01/1983 DTAP/TDAP/TD VACCINES (1 - Tdap) 1984 HEPATITIS B VACCINE (1 of 3 - 19+ 3-dose series) 1984 PNEUMOCOCCAL VACCINE 50+ (1 of 1 - PCV) 09/06/2015 ZOSTER VACCINE (1 of 2) 09/06/2015 COVID-19 VACCINE (1 - 2023-2 5 season) 2024 DEPRESSION SCREENING 07/07/2024 INFLUENZA VACCINE (#1) 2025 HIB VACCINE Aged Out No longer eligi ble based on patient's age to complete this topic HPV VACCINE Aged Out No longer eligi ble based on patient's age to complete this topic MENINGOCOCCAL (Group B) VACC INE SHARED DECISION-MAKING Aged Out No longer eligibl e based on patient's age to complete this topic MENINGOCOCCAL GROUPS A/C/Y/W VACCINE Aged Out No longer eligible b ased on patient's age to complete this topic Insurance [facility]
--- OUTSIDE RECORDS SUMMARY | 2025-03-03 13:17 | XMS_ITS | Encounter Summary ---
Author Organization [facility] Address [address] [address] Care Team Providers Care Chief Mate Name Role Phone Yaa Ac MD Primary Care Provider [phone] Yaa Ac MD Primary Care Provider [phone] Yaa Ac MD Primary Care Provider [phone] Unique Ewing MD Primary Care Provider [phone] Vincent Holm MD Primary Care Provider [phone] Encounter Details Date Type Department Care Team (Late st Contact Info) Description 03/13/2010 Orders Only Internal Medicine Specialists ProviderNagi MD [address] [place] [id number] Social History Tobacco Use Types Packs/Day Years Used Date Smoking Tobacco: Never Assessed Comments Unknown Sex and Gender Information Value Date Recorded Sex Assigned at Not on file Legal Sex Female 12:07 PM 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 us Historical Provider [facility] Final Result documented in this encounter Visit Diagnoses Not on filedocumented in this encounter Care Teams Chief Mate Relationship Specialty [place] [address] [place] [address] PCP - General 10/04/16 04/30/18 [place] [address] [place] [address] PCP - General 09/21/14 10/03/16 [place] [address] [place] [address] PCP - General 06/01/08 09/20/14 Unique Ewing MD [address] [facility] [address] [place] [address] PCP - General Family Medicine 05/01/18 12/26/22 Vincent Holm MD [address] [place] [address] PCP - General Family Medicine 12/27/22 documented as of this encounter
--- OUTSIDE RECORDS SUMMARY | 2025-03-03 13:17 | XMS_ITS | Clinical Summary ---
Author Organization [facility] Address [address] [place] [address] Phone Care Team Providers Care Molten Iron Pourer Name Role Phone Yaa Ac MD Primary Care Provider Allergies Active Allergy Reactions Criticality Noted Date Comments Ciprofloxacin Unknown 04/24/2018 Dexamethasone Unknown 04/24/2018 Midazolam Unknown 04/24/2018 Sulfa (Sulfonamide Antibiotics) Unknown 11/01/2011 Sulfamethoxazole Other (See Comments) Reaction: Unknown, Topiramate Confusion Trimethoprim Other (See Comments) Reaction: Unknown, Medications lamoTRIgine (LAMICTAL) 200 mg Oral tablet Take 200 mg by mouth daily. Active aspirin (FAVIOLA) 81 mg Oral Tab Take by mouth. Active MULTIVITAMIN ORAL Take by mouth. Activ e omega 2-vxt-ogz-other om3-D3 (OMEGA-3 + VITAMIN D3) 2,200 mg-1,000 unit/5 mL Oral Liqd Take by mouth. Activ e ascorbic acid (VITAMIN C) 250 mg Oral tablet Take 250 mg by mouth daily. Active CALCIUM CARBONATE (CALCIUM 500 ORAL) Take by mouth. Activ e cetirizine (ZyrTEC) 10 mg tablet Take 10 mg by mouth. Active Cholecalciferol , Vitamin D3, 2,000 unit Capsule take 1 by oral route every day 0 Active fluticasone (FLONASE) 50 mcg/spray [place], Suspension spray 1 spray by intranasal route every day in each nostril 5 Active diazePAM (VALIUM) 2 mg tablet Take 1 Tablet (2 mg) by mouth every 8 hours as needed for Anxiety. 50 Tablet 3 9 Active Active Problems Problem Noted Date Diagnosed Date BMI 23.0-23.9, adult 09/11/2018 Dizziness 02/10/2018 Syncope 02/10/2018 Back pain with right-sided sciatica 12/11/2017 Overview (04/24/2018): Last Assessment & Plan: Acutely symptomatic Bulging of lumbar intervertebral disc 12/11/2017 Overview (04/24/2018): Last Assessment & Plan: Worsening symptoms Epigastric pain 10/23/2017 Overview (04/24/2018): Last Assessment & Plan: Diffuse abdominal pain but increased discomfort in the epigastric area. Recommend screening blood work- lipase, CBC, CMP and Ultrasound of the RUQ for further evaluation. Recommend omeprazole 40mg daily. She will let me know if symptoms do not improve and consider GI referral or adding on an upper endoscopy when she schedules her routine colonoscopy. Anxiety 11/20/2013 Overview (04/24/2018): Overview: Anxiety Cyst of ovary 11/20/2013 Overview (04/24/2018): Overview: Ovarian cyst Seizure disorder 11/20/2013 Overview (04/24/2018): Overview: Seizure disorder Last Assessment & Plan: She reports no seizure activity and is taking her medications as prescribed. I offered a neurology referral but she declines. She wants to see someone at [facility] and will let me know if she needs a referral. 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 Overview (04/24/2018): Overview: Vertebrobasilar artery syndrome Vestibular neuronitis 11/20/2013 Overview (04/24/2018): Overview: VESTIBULAR NEURONITIS Visual disturbance 11/20/2013 Overview (04/24/2018): Overview: Visual disturbance Dysphagia 11/01/2011 Loss of weight 11/01/2011 Abdominal pain, other specified site 10/31/2011 Immunizations Immunization Administration Dates Next Due INFLUENZA VACCINE QUADRIVALENT 3 YR UP PF IM INFLUENZA VACCINE QUADRIVALENT 6 MOS UP IM 04/06 INFLUENZA VACCINE QUADRIVALENT 6 MOS UP PF IM Influenza Seasonal Unspecified Formulation IM ,04/06/2010 Influenza Vaccine Split 3+ Yrs IM 04/20/2017, Influenza Vaccine Split 3+ Yrs PF IM 05/07/2014 Skin Test TB 09/14/2018 Family History Medical History Relation Name Comments Ovarian Cancer Maternal Grandmother Relation Name Status Comments Maternal Grandmother Social History Tobacco Use Types Packs/Day Years Used Date Smoking Tobacco: Never Smokeless Tobacco: Never Alcohol Use Standard Drinks/Week Comments No 0 (1 standard drink = 0.6 oz pur e alcohol) Comments Unknown Sex and Gender Information Value Date Recorded Sex Assigned at Not on file Legal Sex Female 5:31 AM ALUMINA REFINERY OPERATOR Gender Identity Not on file Sexual Orientation Not on file Last Filed Vital Signs Vital Sign Reading Time Taken Comments Blood Pressure 100/70 09/11/2018 11:22 AM ALUMINA REFINERY OPERATOR Pulse 60 09/11/2018 11:22 AM ALUMINA REFINERY OPERATOR Temperature - - Respiratory Rate - - Oxygen Saturation 98% 04/24/2018 4:13 PM CDT Inhaled Oxygen Concentration - - Weight 59.9 kg (132 lb) 09/11/2018 11:22 AM ALUMINA REFINERY OPERATOR Height 160 cm (5' 3) 09/11/2018 11:22 AM ALUMINA REFINERY OPERATOR Body Mass Index 23.38 09/11/2018 11:22 AM ALUMINA REFINERY OPERATOR Plan of Treatment Health Maintenance Due Date Last Done Comments DTAP/TDAP/TD VACCINES (1 - Tdap) 1984 HEPATITIS B VACCINES (1 of 3 - 19+ 3-dose series) 1984 HPV/Cotest (21-29) 1986 CERVICAL CANCER SCREENING 09/06/1995 HPV/Cotest (30-65) 09/06/1995 PAP SMEAR 09/06/1995 BREAST CANCER SCREENING 2005 FIT-DNA Q 3 years 2010 FIT/FOBT Q 1 year 2010 Flex Sig/CT Colonography Q 5 years 2010 ZOSTER VACCINE (1 of 2) 09/06/2015 COLORECTAL SCREENING 10/14/2018 10/14/2008, 10/15/19 09 Colorectal Cancer Screening 10/14/2018 Preventative Visit- Commercial 07/07/2024 09/11/2018 INFLUENZA VACCINE (#1) 2025 8, 03/23/2018, 03/23/2018, Additional history exists Procedures Procedure Name Priority Date/Time Associated Diagnosis Comments ENDOSCOPY, COLON, DIAGNOSTIC Routine 10/14/2008 from Last 3 Months or Most Recently Relevant to Health Maintenance Results * (ABNORMAL) ENDOSCOPY, COLON, DIAGNOSTIC (10/14/2008) us Cruz Bermudez MD GI PROCEDURE ORDERABLES Leatha guidry Result [facility] from Last 3 Months or Most Recently Relevant to Health Maintenance Insurance [facility] [employer] PPO [id number] Care Teams Molten Iron Pourer Relationship Specialty Start Date End Date Yaa Ac MD PCP - General 06/23/15
--- OUTSIDE RECORDS SUMMARY | 2025-03-03 13:17 | XMS_ITS | Encounter Summary ---
Author Organization [employer] [facility] Address [address] [place] [address] Care Team Providers Care Toe Puncher Name Role Phone Yaa Ac MD Primary Care Provider Encounter Details Date Type Department Care Team (Late st Contact Info) Description 08/10/2007 Emergency [facility], Authorized P NO ADDRESS ON FILE Nidhi Bran MD NO ADDRESS ON FILE Social History Tobacco Use Types Packs/Day Years Used Date Smoking Tobacco: Never Assessed Comments Unknown Sex and Gender Information Value Date Recorded Sex Assigned at Not on file Legal Sex Female 5:31 AM VISUAL C DEVELOPER Gender Identity Not on file Sexual Orientation Not on file documented as of this encounter Plan of Treatment Not on file documented as of this encounter Procedures Procedure Name Priority Date/Time Associated Diagnosis Comments URINALYSIS WITH MICROSCOPIC Routine 08/10/2007 12:37 PM VISUAL C DEVELOPER ED HOLD Routine 08/10/2007 11:54 AM VISUAL C DEVELOPER documented in this encounter Results * (ABNORMAL) URINALYSIS WITH MICROSCOPIC (08/10/2007 12:37 PM VISUAL C DEVELOPER) COLOR UA Colorless INTERFACE SYSTEM CLARITY UA Clear Clear INTERFACE SYSTEM SPECIFIC GRAVITY UA 1.004 1.001 - 1.035 INTERFACE SYSTEM PH UA 6.0 5.0 - 8.0 INTERFACE SYSTEM LEUKOCYTE ESTERASE UA 3+(A) Negative INTERFACE SYSTEM NITRITE UA Negative Negative INTERFACE SYSTEM PROTEIN UA Negative Negative INTERFACE SYSTEM GLUCOSE UA Negative Negative INTERFACE SYSTEM KETONES UA Negative Negative INTERFACE SYSTEM UROBILINOGEN UA <1 <=1 mg/dL INTE RFACE SYSTEM BILIRUBIN UA Negative Negative INTERFA CE SYSTEM BLOOD UA 2+(A) Negative INTERFACE SYSTEM WBC UA 29(H) 0 - 5 /HPF INTERFACE SYSTEM RBC UA 1 0 - 4 /HPF INTERFACE SYSTEM BACTERIA UA 1+(A) None Seen /HPF INTERFACE SYSTEM EPITHELIAL CELLS, URINE 2-5 /HPF INTERFACE SYSTEM 08/10/2007 12:3 7 PM VISUAL C DEVELOPER Narrative INTERFACE SYSTEM - 08/10/2007 1:19 PM VISUAL C DEVELOPER Ordered by an unspecified provider. us Historical Provider URINE ORDERABLES Final Resul t INTERFACE SYSTEM Refer to clinic/hospital department * ED HOLD (08/10/2007 11:54 AM VISUAL C DEVELOPER) SPECIMEN HOLD, BLOOD 7 days INTERFACE SYSTEM 08/10/2007 11:5 4 AM VISUAL C DEVELOPER Narrative INTERFACE SYSTEM - 08/10/2007 12:02 PM VISUAL C DEVELOPER Ordered by an unspecified provider. Historical Provider CHEMISTRY ORDERABLES Final R esult INTERFACE SYSTEM Refer to clinic/hospital department documented in this encounter Visit Diagnoses Not on filedocumented in this encounter Care Teams Toe Puncher Relationship Specialty Start Date End Date Yaa Ac MD PCP - General 06/23/15 documented as of this encounter
== END 2025-03-03 13:00 | disposition home or self-care (01) ==
LOC: CHSIMG 13:03
PROVIDERS: PCP Emergency Medicine; Visit Provider Emergency Medicine
DX: Z12.31 Encounter for screening mammogram for malignant neoplasm of breast (principal); Z78.0 Asymptomatic menopausal state; M85.88 Other specified disorders of bone density and structure, other site; M81.0 Age-related osteoporosis without current pathological fracture
CPT/HCPCS: 77063; 77067; 77080